=== PATIENT | female | born 1955 | race Hispanic/Latino ===

== ENCOUNTER 2019-03-08 07:53 | Day surgery (SDC) | payer OTHER ==
--- OUTSIDE RECORDS SUMMARY | 2019-03-08 07:55 | XMS REPORT | Clinical Summary ---
:1955 Author Organization [facility] Address [address] [place] [address] Care Team Providers Name Role Phone Viktoriya Ponce DO Primary Care Provider Allergies Active Allergy Reactions Severity Noted Date Comments Codeine Other (See Comments) 10/28/2012 Hydrocodone-Acetaminophen Diarrhea 10/28/2012 Medications Medication Sig Dispensed Refills Start Date End Date Status sulfamethoxazole-trim TAKE ONE (1) 2 06/04/2017 Active ethoprim (BACTRIM DS) TABLET(S) BY MOUTH 800-160 mg per tablet EVERY TWELVE HOURS. ECONAZOLE NITRATE, 0 06/04/2017 Active BULK, MISC urea 40 % nail film Apply to affected 12 06/04/2017 Active suspension area twice daily. Active Problems Problem Noted Date History of kidney cancer 12/18/2015 Encounters Date Type Specialty Care Team Description 11/09/2018 Office Visit Urology Niki Renee MD History of renal cell cancer (Primary Dx) 11/09/2018 Hospital Encounter Radiology Niki Renee MD History of kidney cancer 10/27/2018 Telephone Urology [place] Thayer MA 10/23/2018 Telephone Urology [place] Thayer MA History of kidney cancer (Primary Dx) 10/22/2018 Transcribe Orders Urology Niki Renee MD Personal history of renal cancer (Primary Dx) after 03/07/2018 Social History Tobacco Use Types Packs/Day Years Used Date Never Smoker Smokeless Tobacco: Never Used Alcohol Use Drinks/Week oz/Week Comments Yes ocassional Sex Assigned at Date Recorded Female 11/08/2018 11:07 PM CDT Job Start Date Occupation Industry Not on file Not on file Not on file Travel History Travel Start Travel End No recent travel history available. Last Filed Vital Signs Vital Sign Reading Time Taken Blood Pressure 139/86 11/09/2018 1:26 PM CDT Pulse 75 11/09/2018 1:26 PM CDT Temperature - - Respiratory Rate - - Oxygen Saturation - - Inhaled Oxygen Concentration - - Weight 122 kg (270 lb) 11/09/2018 10:56 AM CDT Height 160 cm (5' 3") 11/09/2018 10:56 AM CDT Body Mass Index 47.83 11/09/2018 10:56 AM CDT Plan of Treatment Health Maintenance Due Date Last Done Comments BREAST CANCER SCREENING 2006 COLONOSCOPY SCREENING 2006 SHINGLES VACCINES (#1) 2006 INFLUENZA VACCINE 03/04/2019 Procedures Procedure Name Priority Date/Time Associated Comments Diagnosis CT CHEST W CONTRAST Routine 11/09/2018 12:02 PM History of kidney Results for this ABDOMEN W WO CDT cancer procedure are in CONTRAST the results section. ESTIMATED GFR Routine 11/09/2018 11:28 AM Results for this CDT procedure are in the results section. POC CREATININE Routine 11/09/2018 11:28 AM Results for this CDT procedure are in the results section. after 03/07/[address] Chest W Contrast Abdomen W Wo Contrast (11/09/2018 12:02 PM CDT) Specimen Narrative Performed At EXAMINATION:CT CHEST W CONTRAST ABDOMEN W WO CONTRAST [facility] CLINICAL HISTORY:Z85.528 Personal history of other malignant neoplasm of kidney, h o Kidney Cancer Z85.528 TECHNIQUE: Multiple axial images of the chest and abdomen were obtained after intravenous administration of contrast. Precontrast images of the abdomen were obtained. Sagittal and coronal computerized reformatted images were also obtained. Radiation dose reduction technique was utilized. COMPARISON:08/01/2017 IMPRESSION: 1. No mediastinal or hilar masses are present. 2.There are no pleural effusions. 3.No pulmonary parenchymal masses or infiltrates are seen. 4.There is a small hiatus hernia. 5.There is fatty infiltration of the liver. No masses are seen. 6.Spleen, pancreas, adrenals, and right kidney are normal. 7.There are postoperative changes related to partial renal resection in the upper pole. No residual or recurrent tumor identified. 8.There is no retroperitoneal adenopathy or upper abdominal ascites. [facility]-[id number] Procedure Note Interface, Radiology Results Incoming - 11/09/2018 12:50 PM CDT EXAMINATION: CT CHEST W CONTRAST ABDOMEN W WO CONTRAST CLINICAL HISTORY: Z85.528 Personal history of other malignant neoplasm of kidney, h o Kidney Cancer Z85.528 TECHNIQUE: Multiple axial images of the chest and abdomen were obtained after intravenous administration of contrast. Precontrast images of the abdomen were obtained. Sagittal and coronal computerized reformatted images were also obtained. Radiation dose reduction technique was utilized. COMPARISON: 08/01/2017 IMPRESSION: 1. No mediastinal or hilar masses are present. 2. There are no pleural effusions. 3. No pulmonary parenchymal masses or infiltrates are seen. 4. There is a small hiatus hernia. 5. There is fatty infiltration of the liver. No masses are seen. 6. Spleen, pancreas, adrenals, and right kidney are normal. 7. There are postoperative changes related to partial renal resection in the upper pole. No residual or recurrent tumor identified. 8. There is no retroperitoneal adenopathy or upper abdominal ascites. [facility]-[id number] Performing Organization Address [facility] Phone Number [facility] [address] [place] [address] Estimated GFR (11/09/2018 11:28 AM CDT) Pathologist [facility] Estimated GFR >=90 mL/min/1.73 [facility] Comment: [address] CatergoryUnitsInterpretation G1 >=90 Normal or high G2 60-89Mildly decreased Z1z97-04Vjwyqs to moderately decreased Q7z77-68Cpemlhgxyz to severely decreased G4 15-29Severely decreased G5 <15Kidney failure The eGFR was calculated using the Chronic Kidney Disease Epidemiology Collaboration (CKD-EPI) equation. Interpretation is based on recommendations of the National Kidney Foundation-Kidney Disease Outcomes Quality Initiative (NKF-KDOQI) published in 2014. Specimen Blood Performing Organization Address [facility]/Zipcode Phone Number [facility] DEPARTMENT OF PATHOLOGY AND [address] [place] [address] GENOM[address] MED[address]INE [address] [address] POC creatinine (11/09/2018 11:28 AM CDT) Pathologist [facility] POC creatinine 0.6 0.5 - 0.9 mg/dl [facility]ANNA [facility]ST[facility]AR[facility] Comment: HOSPITAL Meter ID: [id number] Cremator: Val Arana Specimen Blood Performing Organization Address City/State/Zipcode Phone Number [facility] DEPARTMENT OF PATHOLOGY AND [address] [place] [address] GENOMIC MEDICINE [place] [id number] [place] [address] after 03/07/2018 (Work) Advance Directives Patient has advance care planning documents on file. For more information, please contact:[facility] [place] [phone]
--- OUTSIDE RECORDS SUMMARY | 2019-03-08 07:56 | XMS REPORT ---
:1955 Author Organization eClinicalWorks Care Team Providers Name Role Phone Ponce, Na Provider Role Unavailable Allergies, Adverse Reactions, Alerts Substance Reaction Event Type codeine nightmares Drug Allergy Lortab 5 stomach Drug Allergy Problems Problem Type Condition Code Onset Dates Condition Status Assessment Blood tests for routine general Z00.00 Active physical examination Assessment Hx of renal cell carcinoma Z85.528 Active Assessment EMILY (obstructive sleep apnea) G47.33 Active Assessment Vitamin D deficiency E55.9 Active Assessment Pain, joint, multiple sites M25.50 Active Assessment Varicose veins of bilateral lower I83.893 Active extremities with other complications Assessment Grieving F43.21 Active Assessment Lumbosacral disc herniation M51.27 Active Assessment Restless legs G25.81 Active Problem Vitamin D deficiency E55.9 Active Assessment Hiatal hernia K44.9 Active Problem Pain, joint, multiple sites M25.50 Active Assessment Gastroesophageal reflux disease K21.9 Active without esophagitis Problem Lumbar disc herniation M51.26 Active Problem Lumbosacral disc herniation M51.27 Active Problem Prediabetes R73.03 Active Problem Varicose veins of bilateral lower I83.893 Active extremities with other complications Problem Grieving F43.21 Active Assessment Lumbar back pain with radiculopathy M54.17 Active affecting left lower extremity Problem Restless legs G25.81 Active Assessment Prediabetes R73.03 Active Problem Plantar fasciitis, bilateral M72.2 Active Problem Osteoarthritis of lumbar spine, M47.816 Active unspecified spinal osteoarthritis complication status Problem Gastroesophageal reflux disease K21.9 Active without esophagitis Problem Lumbar back pain with radiculopathy M54.17 Active affecting left lower extremity Problem Arthritis of spine M46.90 Active Problem Enuresis R32 Active Problem Morbid obesity due to excess E66.01 Active calories Problem Allergic rhinitis J30.9 Active Problem Obstructive sleep apnea G47.33 Active Problem Renal mass N28.89 Active Problem Diverticulitis of colon K57.32 Active Problem Sciatica of left side M54.32 Active Medications Medication Code Code Instructions Start End Status Dosage System Date Date ProAir HFA [facility] 70201829238 108 (90 Base) January Active 2 puffs MCG/ACT 12, as needed Inhalation 2018 every 6 hrs Prilosec [facility] 76523646486 40 MG Orally Active 1 capsule Once a day Hydrochlorothiazide [facility] 73647499592 25 MG Orally Active 1 tablet Once a day in the morning Omeprazole Magnesium [facility] 30613373833 20.6 (20 Base) October Active 1 capsule MG Orally Once 14, a day 2018 Ranitidine HCl [facility] 03732734245 150 MG Orally January Active 1 tablet Twice a day 18, at 2019 bedtime Vitamin D [facility] 97777244763 [address] UNIT Active TAKE ONE (Ergocalciferol) (1) CAPSULE BY MOUTH WEEKLY FOR 12 WEEKS. Flonase [facility] 55430277494 50 MCG/DOSE Active 2 spray Nasally Once a in each day nostril Levocetirizine [facility] 33569134703 5 MG Orally Active 1 tablet Dihydrochloride Once a day in the evening Claritin [facility] 23366917082 10 MG Orally Active 1 tablet Once a day Results No Known Results Summary Purpose eClinicalWorks Submission
--- OUTSIDE RECORDS SUMMARY | 2019-03-08 07:56 | XMS REPORT ---
:1955 Author Organization eClinicalWorks Care Team Providers Name Role Phone Ponce, Na Provider Role Unavailable Allergies No Known Allergies Problems Problem Type Condition Code Onset Dates Condition Status Problem Arthritis of spine M46.90 Active Problem Plantar fasciitis, bilateral M72.2 Active Problem Allergic rhinitis J30.9 Active Problem Lumbar disc herniation M51.26 Active Problem Pain, joint, multiple sites M25.50 Active Problem Vitamin D deficiency E55.9 Active Problem Lumbosacral disc herniation M51.27 Active Problem Prediabetes R73.03 Active Problem Lumbar back pain with radiculopathy M54.17 Active affecting left lower extremity Problem Osteoarthritis of lumbar spine, M47.816 Active unspecified spinal osteoarthritis complication status Problem Obstructive sleep apnea G47.33 Active Problem Renal mass N28.89 Active Problem Diverticulitis of colon K57.32 Active Problem Enuresis R32 Active Problem Sciatica of left side M54.32 Active Problem Morbid obesity due to excess E66.01 Active calories Medications Medication Code System Code Instructions Start Date End Date Status Dosage Flagyl NDC 95337404870 500 MG Orally bid Apr 24, May 01, Active 1 tablet 2017 2017 Cipro NDC 68332688052 500 MG Orally Apr 24, May 01, Active 1 tablet every 12 hrs 2017 2017 Results No Known Results Summary Purpose eClinicalWorks Submission
--- OUTSIDE RECORDS SUMMARY | 2019-03-08 07:56 | XMS REPORT ---
:1955 Author Organization eClinicalWorks Care Team Providers Name Role Phone Ponce, Na Provider Role Unavailable Allergies No Known Allergies Problems Problem Type Condition Code Onset Dates Condition Status Problem Allergic rhinitis J30.9 Active Problem Prediabetes R73.03 Active Problem Plantar fasciitis, bilateral M72.2 Active Problem Lumbar back pain with radiculopathy M54.17 Active affecting left lower extremity Problem Lumbar disc herniation M51.26 Active Problem Gastroesophageal reflux disease K21.9 Active without esophagitis Problem Osteoarthritis of lumbar spine, M47.816 Active unspecified spinal osteoarthritis complication status Problem Lumbosacral disc herniation M51.27 Active Problem Pain, joint, multiple sites M25.50 Active Problem Vitamin D deficiency E55.9 Active Problem Morbid obesity due to excess E66.01 Active calories Assessment Gastroesophageal reflux disease K21.9 Active without esophagitis Problem Sciatica of left side M54.32 Active Problem Obstructive sleep apnea G47.33 Active Problem Enuresis R32 Active Problem Renal mass N28.89 Active Problem Diverticulitis of colon K57.32 Active Problem Arthritis of spine M46.90 Active Medications Medication Code Code Instructions Start End Status Dosage System Date Date Omeprazole [facility] 37898359254 20.6 (20 Base) October 15, Active 1 capsule Magnesium MG Orally Once a 2018 day Results No Known Results Summary Purpose [employer] Submission
--- OUTSIDE RECORDS SUMMARY | 2019-03-08 07:56 | XMS REPORT ---
:1955 Author Organization eClinicalWorks Care Team Providers Name Role Phone Ponce, Na Provider Role Unavailable Allergies, Adverse Reactions, Alerts Substance Reaction Event Type codeine nightmares Drug Allergy Lortab 5 stomach Drug Allergy Problems Problem Type Condition Code Onset Dates Condition Status Problem Lumbar disc herniation M51.26 Active Problem Lumbosacral disc herniation M51.27 Active Problem Prediabetes R73.03 Active Problem Varicose veins of bilateral lower I83.893 Active extremities with other complications Problem Grieving F43.21 Active Assessment Right anterior knee pain M25.561 Active Assessment Traumatic ecchymosis of multiple S80.11XA Active sites of right lower extremity, initial encounter Problem Restless legs G25.81 Active Problem Plantar fasciitis, bilateral M72.2 Active Problem Osteoarthritis of lumbar spine, M47.816 Active unspecified spinal osteoarthritis complication status Problem Gastroesophageal reflux disease K21.9 Active without esophagitis Problem Lumbar back pain with M54.17 Active radiculopathy affecting left lower extremity Problem Arthritis of spine M46.90 Active Problem Enuresis R32 Active Problem Morbid obesity due to excess E66.01 Active calories Problem Allergic rhinitis J30.9 Active Problem Obstructive sleep apnea G47.33 Active Problem Renal mass N28.89 Active Assessment History of recent fall Z91.81 Active Problem Diverticulitis of colon K57.32 Active Problem Vitamin D deficiency E55.9 Active Assessment Acute pain of right wrist M25.531 Active Problem Sciatica of left side M54.32 Active Problem Pain, joint, multiple sites M25.50 Active Medications Medication Code Code Instructions Start End Status Dosage System Date Date Vitamin D [facility] 69687212851 [address] UNIT Active TAKE ONE (Ergocalciferol) (1) CAPSULE BY MOUTH WEEKLY FOR 12 WEEKS. Omeprazole Magnesium [facility] 60317067898 20.6 (20 Base) October Active 1 capsule MG Orally Once 14, a day 2018 Prilosec [facility] 48379328057 40 MG Orally Active 1 capsule Once a day Claritin [facility] 08880530090 10 MG Orally Active 1 tablet Once a day ProAir HFA [facility] 96953365887 108 (90 Base) January Active 2 puffs MCG/ACT 12, as needed Inhalation 2018 every 6 hrs Ranitidine HCl [facility] 53756410035 150 MG Orally January Active 1 tablet Twice a day 18, at 2019 bedtime Levocetirizine [facility] 70037840153 5 MG Orally Active 1 tablet Dihydrochloride Once a day in the evening Meloxicam [facility] 43057314073 7.5 MG Orally February Active 1 tablet Once a day 09, 24, with food 2018 2018 Hydrochlorothiazide [facility] 64948764864 25 MG Orally Active 1 tablet Once a day in the morning Flonase [facility] 42903558913 50 MCG/DOSE Active 2 spray Nasally Once a in each day nostril Results No Known Results Summary Purpose eClinicalWorks Submission
--- OUTSIDE RECORDS SUMMARY | 2019-03-08 07:56 | XMS REPORT ---
[...] due to excess E66.01 Active calories Problem Sciatica of left side M54.32 Active Problem Obstructive sleep apnea G47.33 Active Problem Enuresis R32 Active Problem Renal mass N28.89 Active Problem Diverticulitis of colon K57.32 Active Problem Arthritis of spine M46.90 Active Medications No Known Medications Results No Known Results Summary Purpose eClinicalWorks Submission
--- OUTSIDE RECORDS SUMMARY | 2019-03-08 07:56 | XMS REPORT ---
:1955 Author Organization eClinicalWorks Care Team Providers Name Role Phone Ponce, Na Provider Role Unavailable Allergies, Adverse Reactions, Alerts Substance Reaction Event Type codeine nightmares Drug Allergy Lortab 5 stomach Drug Allergy Problems Problem Type Condition Code Onset Dates Condition Status Assessment Impacted cerumen, right ear H61.21 Active Assessment Acute gastritis without hemorrhage, K29.00 Active unspecified gastritis type Problem Renal mass N28.89 Active Assessment Blood tests for routine general Z00.00 Active physical examination Problem Arthritis of spine M46.90 Active Assessment Gastroesophageal reflux disease K21.9 Active without esophagitis Problem Allergic rhinitis J30.9 Active Problem Prediabetes R73.03 Active Problem Plantar fasciitis, bilateral M72.2 Active Problem Lumbar back pain with radiculopathy M54.17 Active affecting left lower extremity Problem Lumbar disc herniation M51.26 Active Assessment Prediabetes R73.03 Active Assessment Vitamin D deficiency E55.9 Active Problem Gastroesophageal reflux disease K21.9 Active without esophagitis Assessment Pain, joint, multiple sites M25.50 Active Problem Osteoarthritis of lumbar spine, M47.816 Active unspecified spinal osteoarthritis complication status Problem Lumbosacral disc herniation M51.27 Active Problem Pain, joint, multiple sites M25.50 Active Problem Vitamin D deficiency E55.9 Active Problem Morbid obesity due to excess E66.01 Active calories Assessment Lumbosacral disc herniation M51.27 Active Assessment Lumbar back pain with radiculopathy M54.17 Active affecting left lower extremity Problem Sciatica of left side M54.32 Active Problem Obstructive sleep apnea G47.33 Active Problem Enuresis R32 Active Problem Diverticulitis of colon K57.32 Active Medications Medication Code Code Instructions Start End Status Dosage System Date Date Levocetirizine [facility] 42714925106 5 MG Orally Active 1 tablet Dihydrochloride Once a day in the evening Vitamin D [facility] 72047680176 [address] UNIT Active TAKE ONE (Ergocalciferol) (1) CAPSULE BY MOUTH WEEKLY FOR 12 WEEKS. Hydrochlorothiazide [facility] 28127073512 25 MG Orally Active 1 tablet Once a day in the morning Prilosec [facility] 78631170571 40 MG Orally Active 1 capsule Once a day Claritin [facility] 33254943823 10 MG Orally Active 1 tablet Once a day Omeprazole Magnesium [facility] 00633774418 20.6 (20 Base) October Active 1 capsule MG Orally Once 14, a day 2018 Flonase [facility] 48435584419 50 MCG/DOSE Active 2 spray Nasally Once a in each day nostril Results No Known Results Summary Purpose eClinicalWorks Submission
--- OUTSIDE RECORDS SUMMARY | 2019-03-08 07:56 | XMS REPORT ---
[...] with other complications Problem Grieving F43.21 Active Problem Restless legs G25.81 Active Problem Plantar [...] Problem Vitamin D deficiency E55.9 Active Problem Sciatica of left side M54.32 Active Problem Pain, joint, multiple sites M25.50 Active Medications No Known Medications Results No Known Results Summary Purpose eClinicalWorks Submission
--- OUTSIDE RECORDS SUMMARY | 2019-03-08 07:56 | XMS REPORT ---
:1955 Author Organization eClinicalWorks Care Team Providers Name Role Phone Reji Watkins Provider Role Unavailable Allergies, Adverse Reactions, Alerts [...] due to excess E66.01 Active calories Assessment Acute bronchitis, unspecified J20.9 Active organism Problem Sciatica of left side M54.32 Active Problem Obstructive sleep apnea G47.33 Active Problem Enuresis R32 Active Problem Renal mass N28.89 Active Problem Diverticulitis of colon K57.32 Active Problem Arthritis of spine M46.90 Active Medications Medication Code Code Instructions Start End Status Dosage System Date Date ProAir HFA [facility] 14716249665 108 (90 Base) January Active 2 puffs MCG/ACT 12, as needed Inhalation 2018 every [address] [facility] 82656476081 40 MG Orally Active 1 capsule Once a day Levocetirizine [facility] 75019371589 5 MG Orally Active 1 tablet Dihydrochloride Once a day in the evening Vitamin D [facility] 09548126585 [address]68[address] UNIT Active TAKE ONE (Ergocalciferol) (1) CAPSULE BY MOUTH WEEKLY FOR [address]. [address] [facility] 65037587324 20.6 (20 Base) October Active 1 capsule MG Orally Once 14, a day [address] [facility] 72654836918 10 MG Orally Active 1 tablet Once a day [place] 56183671830 20 MG Orally January Active 2 tablet Once a day [address] [facility] 17888665560 25 MG Orally Active 1 tablet Once a day in the morning Flonase [facility] 87332720986 50 MCG/DOSE Active 2 spray Nasally Once a in each day nostril Results No Known Results Summary Purpose eClinicalWorks Submission
--- OUTSIDE RECORDS SUMMARY | 2019-03-08 07:57 | XMS REPORT ---
:1955 Author Organization eClinicalWorks Care Team Providers Name Role Phone Ponce, Viktoriya Provider Role Unavailable Allergies, Adverse Reactions, Alerts Substance Reaction Event Type codeine nightmares Drug Allergy Lortab 5 stomach Drug Allergy Problems Problem Type Condition Code Onset Dates Condition Status Problem Lumbar disc herniation M51.26 Active Problem Lumbosacral disc herniation M51.27 Active Problem Prediabetes R73.03 Active Problem Varicose veins of bilateral lower I83.893 Active extremities with other complications Problem Grieving F43.21 Active Assessment Acute maxillary sinusitis, J01.00 Active recurrence not specified Assessment Seasonal allergic rhinitis due to J30.1 Active pollen Problem Restless legs G25.81 Active Problem Plantar [...] Start End Status Dosage System Date Date Flonase [facility] 61941453210 50 MCG/DOSE Active 2 spray in Nasally Once a each day nostril Vitamin D [facility] 99159390095 [address] UNIT Active TAKE ONE (Ergocalciferol) (1) CAPSULE BY MOUTH WEEKLY FOR 12 WEEKS. Augmentin [facility] 16109844457 875-125 MG February Active 1 tablet Orally every 25, 12 hrs 2018 Prilosec [facility] 66044543335 40 MG Orally Active 1 capsule Once a day ProAir HFA [facility] 70128585554 108 (90 Base) January Active 2 puffs as MCG/ACT 12, needed Inhalation 2018 every 6 hrs Flonase [facility] 56849918930 50 MCG/ACT Active 2 spray in Nasally Once a each day nostril Loratadine [facility] 44949292667 10 MG Orally February Active 1 tablet Once a day 2018 Levocetirizine [facility] 25800090283 5 MG Orally Active 1 tablet Dihydrochloride Once a day in the evening Claritin [facility] 46742014724 10 MG Orally Active 1 tablet Once a day Hydrochlorothiazide [facility] 22165130926 25 MG Orally Active 1 tablet Once a day in the morning MethylPREDNISolone [facility] 94953044381 4 MG Orally February Active as daily 15, , 2018 Omeprazole Magnesium [facility] 62983562447 20.6 (20 Base) October Active 1 capsule MG Orally Once 14, a day 2018 Ranitidine HCl [facility] 91361807148 150 MG Orally January Active 1 tablet Twice a day 18, at bedtime 2018 Meloxicam [facility] 03433720804 7.5 MG Orally February Active 1 tablet Once a day 09, 24, with food 2018 2018 Results No Known Results Summary Purpose eClinicalWorks Submission
[2019-03-08] MEDS ORDERED: Ringers Lactate 1,000 ML IV ONE (08:21)
[2019-03-08] MEDS ORDERED: PROPOFOL 200 MG/20 ML VIAL IV ONE ×2 (09:26)
[2019-03-08] MEDS ORDERED: LIDOCAINE 1% MPF 2 ML AMPULE ONE (09:27)
--- NOTE | 2019-03-08 23:34 | OP ---
Surgeon: Akbar Wilson MD Procedure To Be Performed: Esophagogastroduodenoscopy. Indication For Procedure: Dysphagia, reflux, epigastric pain. Plan For Anesthesia: Monitored anesthesia care. Complexity: Average. Technique: After obtaining informed consent from the patient, explaining risks and complications whi ch include, but are not limited to bleeding, infection, perforation, and anesthesia complication, pat ient was placed in a left lateral position and sedation was given. Subsequently, the scope was advan miri through the mouth and carefully guided up until the second portion of the duodenum. After the co mpletion of examination, scope and equipment were withdrawn and procedure terminated in a safe manner . Findings: In the esophagus, no gross lesion seen in the upper and midesophagus. In the distal esoph loli, there was evidence of LA grade B esophagitis. The GE junction appeared to be at around 35 cm. However, another abnormality was noted more distal to the GE junction. What appears to be an extrin sic stenosis seen in the proximal portion of the gas of the stomach around the fundus level. Biopsie s were taken from the as stated above, still an extrinsic stenosis seen in the proximal st omach at the level of fundus. This was around 37-38 cm from the incisors. With the little pressure, the scope was able to pass through, there was no complete obstruction, but there is definitely some narrowing. This likely appears to be lap band that was placed several years ago on the stomach. In the remainder part of the stomach below the stenosis, mild patchy erythema seen. Biopsies taken. Du odenum, the bulb and second portion appeared normal. Complications: None. Tolerance To Anesthesia: Excellent. Postoperative Diagnoses: 1.Esophagitis. 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 3.Gastritis. Plan: 1.Await pathology results. 2.Follow up in the GI Clinic. 3.Protonix 40 mg oral daily. 4.Follow up with bariatric surgeon for further evaluation and removal or reduction of fluid from the lap band. US/MODL Voice ID: [id number] Report ID: [id number]
== END 2019-03-08 10:45 | disposition home or self-care (01) ==
LOC: OR 07:53
PROVIDERS: ATTEND Internal Medicine Gastroenterology
PROC: 0DB78ZX Excision of Stomach, Pylorus, Via Natural or Artificial Opening Endoscopic, Diagnostic (ICD-10-PCS; 2019-03-08)
PROC: 0DB68ZX Excision of Stomach, Via Natural or Artificial Opening Endoscopic, Diagnostic (ICD-10-PCS; 2019-03-08)
PROC: 0DB58ZX Excision of Esophagus, Via Natural or Artificial Opening Endoscopic, Diagnostic (ICD-10-PCS; 2019-03-08)
PROC: 0DB48ZX Excision of Esophagogastric Junction, Via Natural or Artificial Opening Endoscopic, Diagnostic (ICD-10-PCS; principal; 2019-03-08 09:30)
DX: K29.50 Unspecified chronic gastritis without bleeding (principal); K21.0 Gastro-esophageal reflux disease with esophagitis; I51.89 Other ill-defined heart diseases; K31.89 Other diseases of stomach and duodenum; Z98.84 Bariatric surgery status
CPT/HCPCS: 43239; 88312; 88305; J2704; J2001

== ENCOUNTER 2021-05-12 09:50 | Emergency (ER) | payer OTHER ==
--- NOTE | 2021-05-12 10:05 | ER ---
Nurse's Notes [facility] Name: Sophie Sanchez Age: 65 yrs Sex: Female : 1955 Arrival Date: 05/12/2021 Time: 09:55 Bed 16 Private MD: Diagnosis: Abrasion, right lower leg Presentation: 05/12 09:55 Chief complaint: EMS states: pt nicked herself while shaving and a varicose vein tw2 wouldn't stop bleeding. we applied pressure dressing. vs stable. Hx: varicose veins, PVD, arthritis, Gerd. Coronavirus screen: At this time, the client does not indicate any symptoms associated with coronavirus-19. Ebola Screen: Patient denies travel to an Ebola-affected area in the 21 days before illness onset. Initial Sepsis Screen: Does the patient meet any 2 criteria? No. Patient's initial sepsis screen is negative. Does the patient have a suspected source of infection? No. Patient's initial sepsis screen is negative. Risk Assessment: Do you want to hurt yourself or someone else? Patient reports no desire to harm self or others. Onset of symptoms was May 12, 2021. 09:55 Method Of Arrival: EMS: [facility] tw2 09:55 Acuity: KEENAN 4 tw2 Triage Assessment: 10:06 General: Appears well developed, well nourished, Behavior is calm, cooperative, es2 appropriate for age. Historical: - Allergies: 09:58 Lortab; tw2 09:58 Codeine; tw2 - Home Meds: 09:58 omeprazole 40 mg Oral cpDR 1 cap once daily [Active]; tw2 - PMHx: 09:58 Hypertension; kidney cancer; varicose veins; GERD; tw2 - Immunization history:: Adult Immunizations. - Social history:: Smoking status: . Screenin:59 Abuse screen: Denies threats or abuse. Nutritional screening: No deficits noted. tw2 Tuberculosis screening: No symptoms or risk factors identified. Fall Risk None identified. Assessment: 10:00 Reassessment: provider FAM Funes at bedside at this time. no bleeding noted. tw2 10:06 Pain: Denies pain. es2 Vital Signs: 09:55 Pulse 81; Resp 17; Temp 96.8(TE); Pulse Ox 100% on R/A; Weight 124.74 kg (R); Height 5 tw2 ft. 2 in. (157.48 cm); Pain 0/10; 09:59 BP 154 / 72; tw2 09:55 Body Mass Index 50.30 (124.74 kg, 157.48 cm) tw2 ED Course: 09:55 Patient arrived in ED. tw2 09:55 Bed in low position. Call light in reach. Pulse ox on. NIBP on. tw2 09:56 Jordan Smith NP is PHCP. pm1 09:56 Lewis Fink MD is Attending Physician. pm1 09:57 Triage completed. tw2 09:57 Arm band placed on. tw2 09:59 Sintia Mims, RN is Primary Nurse. es2 10:05 Patient did not have IV access during this emergency room visit. es2 10:06 No provider procedures requiring assistance completed. es2 Administered Medications: No medications were administered Outcome: 10:05 Discharge ordered by . pm1 10:05 Condition: stable es2 10:24 Discharged to home ambulatory. es2 10:24 Discharge instructions given to patient. 10:25 Patient left the ED. es2 Signatures: Jordan Smith NP HOME ECONOMICS EXPERT pm1 Valeria Cavazos RN RN tw2 Sintia Mims, BJORN RN es2
--- NOTE | 2021-05-12 10:05 | EDPHYS ---
Physician Documentation [facility] Name: Sophie Sanchez Age: 65 yrs Sex: Female : 1955 Arrival Date: 05/12/2021 Time: 09:55 Bed 16 Private MD: ED Physician Lewis Fink HPI: 05/12 10:04 This 65 yrs old Female presents to ER via EMS with complaints of Varicose vein pm1 bleeding. 10:04 The patient presents with a laceration, 0.5 cm(s), clean. The complaints affect the pm1 anterior aspect of right ankle. Context: The problem was sustained at home, resulted from Shaving legs, the patient can fully bear weight, the patient is able to ambulate. Onset: The symptoms/episode began/occurred just prior to arrival. Modifying factors: The symptoms are alleviated by pressure. the symptoms are aggravated by nothing. Associated signs and symptoms: The patient has no apparent associated signs or symptoms. Treatment prior to arrival includes: applying pressure to the affected area. Severity of symptoms: in the emergency department the symptoms have improved. The patient has not experienced similar symptoms in the past. The patient has not recently seen a physician. Patient was shaving her legs and accidentally cut a varicose vein resulting in bleeding that she had difficult stopping therefore the patient called EMS. Historical: - Allergies: 09:58 Lortab; tw2 09:58 Codeine; tw2 - Home Meds: 09:58 omeprazole 40 mg Oral cpDR 1 cap once daily [Active]; tw2 - PMHx: 09:58 Hypertension; kidney cancer; varicose veins; GERD; tw2 - Immunization history:: Adult Immunizations. - Social history:: Smoking status: . ROS: 10:04 Constitutional: Negative for fever, chills, and weight loss, Cardiovascular: Negative pm1 for chest pain, palpitations, and edema, Respiratory: Negative for shortness of breath, cough, wheezing, and pleuritic chest pain, MS/Extremity: Negative for injury and deformity. 10:04 Neuro: Negative for headache, weakness, numbness, tingling, and seizure. 10:04 Skin: Positive for laceration(s), of the anterior aspect of right ankle. 10:04 All other systems are negative. Exam: 10:04 Constitutional: This is a well developed, well nourished patient who is awake, alert, pm1 and in no acute distress. Head/Face: Normocephalic, atraumatic. 10:04 Cardiovascular: Exam negative for acute changes, Rate: normal, Rhythm: regular, Pulses: no pulse deficits are appreciated. 10:04 Respiratory: Exam negative for acute changes, respiratory distress, shortness of breath. 10:04 Musculoskeletal/extremity: Extremities: grossly normal except: noted in the anterior aspect of right ankle: laceration, 0.5 cm, There is no evidence of decreased ROM, puncture, swelling, tenderness, ROM: intact in all extremities, Pulses: noted to be 2+ in the right dorsalis pedis artery, the right foot Sensation intact. 10:04 Skin: Appearance: normal except for affected area, injury, laceration(s), the wound is approximately 0.5 cm(s), of the anterior aspect of right ankle. 10:04 Neuro: Exam negative for acute changes, Orientation: is normal, Mentation: is normal, Motor: is normal, moves all fours. Vital Signs: 09:55 Pulse 81; Resp 17; Temp 96.8(TE); Pulse Ox 100% on R/A; Weight 124.74 kg (R); Height 5 tw2 ft. 2 in. (157.48 cm); Pain 0/10; 09:59 BP 154 / 72; tw2 09:55 Body Mass Index 50.30 (124.74 kg, 157.48 cm) tw2 MDM: 10:03 Patient medically screened. pm1 10:04 Data reviewed: vital signs. Data interpreted: Pulse oximetry: on room air is 100 %. pm1 Interpretation: normal. Counseling: I had a detailed discussion with the patient and/or guardian regarding: the historical points, exam findings, and any diagnostic results supporting the discharge/admit diagnosis, the need for outpatient follow up, to return to the emergency department if symptoms worsen or persist or if there are any questions or concerns that arise at home. 05/12 10:04 Order name: Dermabond pm1 Administered Medications: No medications were administered Disposition: 05/13 07:02 Co-signature as Attending Physician, Lewis Fink MD I agree with the assessment and rn plan of care. Attestation: The patient's history, exam findings, diagnostics, and a summary of any interventions or procedures was reviewed in detail with Jordan Smith NP. Disposition Summary: 05/12/21 10:05 Discharge Ordered Location: Home pm1 Problem: new pm1 Symptoms: have improved pm1 Condition: Stable pm1 Diagnosis - Abrasion, right lower leg pm1 Followup: pm1 - With: Emergency Department - When: As needed - Reason: Worsening of condition Followup: pm1 - With: Private Physician - When: As needed - Reason: Recheck today's complaints, Continuance of care, Re-evaluation by your physician Discharge Instructions: - Discharge Summary Sheet pm1 - Abrasion pm1 - Tissue Adhesive Wound Care pm1 Forms: - Medication Reconciliation Form pm1 - Thank You Letter pm1 - Antibiotic Education pm1 - Prescription Opioid Use pm1 Signatures: Lewis Fink MD MD rn Marinas, Patrick, NP COMPUTER ART INSTRUCTOR pm1 Valeria Cavazos RN RN tw2
[2021-05-12] MEDS ORDERED: DERMABOND SKIN ADHESIVE TOP ONE (10:26)
[2021-05-12 10:38] VITALS: TEMP 96.8; O2SAT 100
[2021-05-12 10:39] VITALS: BP 154/72
== END 2021-05-12 10:25 | disposition home or self-care (01) ==
LOC: ER 09:50
DX: S80.811A Abrasion, right lower leg, initial encounter (principal); W45.8XXA Other foreign body or object entering through skin, initial encounter; Y93.E1 Activity, personal bathing and showering; Y92.012 Bathroom of single-family (private) house as the place of occurrence of the external cause; Z88.6 Allergy status to analgesic agent; K21.9 Gastro-esophageal reflux disease without esophagitis
CPT/HCPCS: 99283

== ENCOUNTER 2024-03-16 01:19 | Inpatient (IN) | payer BC ==
[2024-03-16 03:43] LABS: Specific Gravity 1.019 (1.005-1.030); Sqamous Epithelial <5 /HPF (None Seen); Urine Bacteria <20 /HPF (<20); Urine Bilirubin NEGATIVE (Negative); Urine Blood 2+ (Negative); Urine Clarity Extremely Turbid (Clear); Urine Color Light-Yellow (Yellow); Urine Crystals Unidentified Few /HPF (None Seen); Urine Culture Reflex Order REFLEXED; Urine Glucose NEGATIVE (Negative); Urine Ketones NEGATIVE (Negative); Urine Microscopic Reflex YN ORDER UMIC; Urine Mucus Slight /HPF (None Seen); Urine Nitrite 1+ (Negative); Urine Protein TRACE (Negative); Urine RBC 21-50 /HPF (None Seen); Urine Urobilinogen Normal (Normal); Urine WBC >50 /HPF (<5); Urine WBC Clump Rare /HPF (None Seen); Urine pH 6.5 (5.0-7.0)
[2024-03-16] MEDS ORDERED: KETOROLAC 30 MG/ML INJ ONE (06:17)
[2024-03-16] MEDS ORDERED: ONDANSETRON 4 MG/2 ML VIAL ONE ×2 (06:25→16:43)
[2024-03-16] MEDS ORDERED: FAMOTIDINE 20 MG/2 ML VIAL IV ONE (06:26)
[2024-03-16] MEDS ORDERED: NA CHLORIDE 0.9% 1,000 ML ONE ×2 (06:27→08:01)
[2024-03-16 06:34] LABS: Absolute Lymphocytes (CBC) 0.3 K/uL (0.7-4.9); Absolute Monocytes 0.4 K/uL (0.1-1.3); Absolute Neutrophil 9.2 K/uL (1.8-8.0); Basophils % 0.3 % (0-1.3); Eosinophils % 0.3 % (0-4.4); Hematocrit 36.3 % (36.0-45.0); Hemoglobin 12.2 g/dL (12.0-15.0); MCH 31.8 pg (27.0-35.0); MCHC 33.7 g/dL (32.0-36.0); MCV 94.2 fL (80-100); MPV 7.5 fL (7.6-11.3); Monocytes % 3.8 % (3.3-12.3); Neutrophils % 92.6 % (41.7-73.7); Nucleated Red Blood Cells % 0.1 % (0-0); Platelets 174 thou/uL (152-406); RBC Red Blood Cell Count 3.85 M/uL (3.86-4.86); Red Cell Distribution Width 13.2 % (12.1-15.2)
[2024-03-16 06:49] LABS: Albumin 3.6 g/dL (3.4-5.0); Albumin/Globulin Ratio 1.2 (1.1-1.8); Anion Gap 10.3 mEq/L (5.0-15.0); Bilirubin Total 0.4 mg/dL (0.2-1.0); Globulin 2.9 g/dL (2.3-3.5); Potassium 3.3 mEq/L (3.5-5.1); Protein, Total 6.5 g/dL (6.4-8.2)
--- NOTE | 2024-03-16 07:06 | RAD REPORT ---
EXAM DESCRIPTION: CTAbdomen Pelvis Wo Contrast - 03/16/2024 5:48 am CLINICAL HISTORY: ABD PAIN COMPARISON: CT ABDOMEN PELVIS WO CONTRAST dated 07/04/2015; CT ABD PELVIS W CONTRAST dated 04/17/2015 TECHNIQUE: CT of the abdomen and pelvis was performed without contrast. All CT scans are performed using dose optimization technique as appropriate and may include automated exposure control or mA/KV adjustment according to patient size. FINDINGS: Lower chest: Small hiatal hernia. Question surgical changes at the gastroesophageal juncti on. Liver: No acute abnormality or suspicious lesions. Biliary: Cholecystectomy. Extrahepatic biliary ductal dilatation common bile duct measures 11 millime ters. This may be secondary to the postcholecystectomy state. Stomach: No significant focal abnormality. Duodenum: No significant focal abnormality. Pancreas: No significant abnormality. Spleen: No significant abnormality. Adrenal: No suspicious lesions. Kidney/ureter: Moderate left-sided hydronephrosis secondary to a 7 mm stone in the left proximal uret er. Left upper pole renal scarring. Retroperitoneum: No retroperitoneal adenopathy. Vascular: No aneurysm. Bowel: Diverticulosis. No evidence of acute diverticulitis. Normal appendix.. Peritoneum: No ascites or free air. Bladder: Grossly unremarkable. Reproductive: No adnexal masses. Bones: Grade 2 anterolisthesis of L5 on S1 with osseous fusion across the disc. Multilevel degenerati ve changes are present in the spine. Other: n/a IMPRESSION: Mild left-sided hydronephrosis secondary to a 7 mm stone in the left proximal ureter. Cholecystectomy. Extrahepatic biliary duct dilatation likely related to the postcholecystectomy state . Correlate with LFTs.
--- NOTE | 2024-03-16 07:47 | ER ---
Nurse's Notes [facility] Name: Sophie Sanchez Age: 68 yrs Sex: Female : 1955 Arrival Date: 03/16/2024 Time: 01:19 Bed 20 Private MD: Diagnosis: Acute left proximal ureteral calculus, acute UTI, acute left hydronephrosis Presentation: 03/16 01:39 Chief complaint: Patient states: left flank [pain radiating to front x 1 hour denies kl urinary symptoms or heavy lifting. Coronavirus screen: Vaccine status: Patient reports receiving the 2nd dose of the covid vaccine. Ebola Screen: Patient negative for fever greater than or equal to 101.5 degrees Fahrenheit, and additional compatible Ebola Virus Disease symptoms. Initial Sepsis Screen: Does the patient meet any 2 criteria? No. Patient's initial sepsis screen is negative. Does the patient have a suspected source of infection? No. Patient's initial sepsis screen is negative. Risk Assessment: Do you want to hurt yourself or someone else? Patient reports no desire to harm self or others. 01:39 Method Of Arrival: Ambulatory kl 01:39 Acuity: KEENAN 3 kl Triage Assessment: 01:42 General: Appears uncomfortable, Behavior is cooperative. Pain: Complains of pain in kl left low back Pain radiates to left lower quadrant Pain currently is 10 out of 10 on a pain scale. Historical: - Allergies: 01:41 Codeine; kl 01:41 Lortab; kl - PMHx: 01:41 GERD; Hypertension; kidney cancer; varicose veins; kl - Immunization history:: Adult Immunizations not up to date. - Infectious Disease History:: Denies. - Social history:: Smoking status: Patient denies any tobacco usage or history of. - Family history:: not pertinent. Screenin:12 [facility] ED Fall Risk Assessment (Adult) History of falling in the last 3 months, kc6 including since admission No falls in past 3 months (0 pts) Confusion or Disorientation No (0 pts) Intoxicated or Sedated No (0 pts) Impaired Gait No (0 pts) Mobility Assist Device Used No (0 pt) Altered Elimination No (0 pt) Score/Fall Risk Level 0 - 2 = Low Risk. Abuse screen: Denies threats or abuse. Denies injuries from another. Nutritional screening: No deficits noted. Tuberculosis screening: No symptoms or risk factors identified. Assessment: 06:29 Reassessment: Patient appears in no apparent distress at this time. Patient and/or jb4 family updated on plan of care and expected duration. Pain level reassessed. Patient is alert, oriented x 3, equal unlabored respirations, skin warm/dry/pink. 08:12 General: Appears in no apparent distress. comfortable, well groomed, well developed, kc6 Behavior is calm, cooperative, appropriate for age. Pain: Complains of pain in left lower quadrant and left low back. Neuro: Level of Consciousness is awake, alert, obeys commands, Oriented to person, place, time, situation, Appropriate for age. Cardiovascular: Capillary refill < 3 seconds. Respiratory: Airway is patent Trachea midline Respiratory effort is even, unlabored, Respiratory pattern is regular, symmetrical. GI: No signs and/or symptoms were reported involving the gastrointestinal system. : No signs and/or symptoms were reported regarding the genitourinary system. EENT: No signs and/or symptoms were reported regarding the EENT system. Derm: No signs and/or symptoms reported regarding the dermatologic system. Skin is intact, is healthy with good turgor, Skin is pink, warm \\T\\ dry. Musculoskeletal: No signs and/or symptoms reported regarding the musculoskeletal system. Circulation, motion, and sensation intact. Capillary refill < 3 seconds, Range of motion: intact in all extremities. 09:52 Reassessment: Patient appears in no apparent distress at this time. No changes from kc6 previously documented assessment. Patient and/or family updated on plan of care and expected duration. Pain level reassessed. Patient is alert, oriented x 3, equal unlabored respirations, skin warm/dry/pink. Vital Signs: 01:39 BP 194 / 74; Pulse 74; Resp 18; Temp 97.6(O); Pulse Ox 97% ; Weight 119.75 kg (R); kl Height 5 ft. 2 in. ; Pain 10/10; 06:29 BP 136 / 63; Pulse 92; Resp 16; Pulse Ox 99% on R/A; jb4 08:13 BP 112 / 63; Pulse 91; Resp 18 S; Pulse Ox 100% on R/A; kc6 01:39 Body Mass Index 48.29 (119.75 kg, 157.48 cm) kl 01:39 Pain Scale: Adult kl [place] Coma Score: 07:28 Eye Response: spontaneous(4). Motor Response: obeys commands(6). Verbal Response: sp4 oriented(5). Total: 15. ED Course: 01:34 Patient arrived in ED. gm2 01:41 Triage completed. kl 02:43 Slava Luna MD is Attending Physician. sp4 05:50 Abdomen In Process Unspecified. EDMS 06:21 Initial lab(s) drawn, by me, sent to lab. kmf 06:21 CBC with Diff Sent. kmf 06:21 CMP Sent. kmf 06:21 Lipase Sent. kmf 06:22 Inserted saline lock: 22 gauge in right hand, using aseptic technique. Blood collected. kmf Flushed with 10 mL NS. 07:45 Mark Cortez MD is Hospitalizing Provider. sp4 08:10 Lissette Mejía RN is Primary Nurse. kc6 08:11 Patient has correct armband on for positive identification. Placed in gown. Bed in low kc6 position. Call light in reach. Side rails up X2. Adult w/ patient. Report received from Xochitl Peña RN. Pulse ox on. NIBP on. Door closed. Noise minimized. Lights dimmed. Warm blanket given. Pillow given. Head of bed elevated. 08:12 Arm band placed on. kc6 10:31 No provider procedures requiring assistance completed. Patient admitted, IV remains in kc6 place. 11:12 1000 CM met with and her son ISMAEL at bedside in the ED exam room. Patient ane identified by name and . Demographic sheet confirmed. lives with her son ISMAEL in a one story home. Patient states she stays alone with her dog while her son works. Prior to admission, patient ambulates fairly well independently, however, will use the wall and furniture to guide her when she has pain. Patient goes on to explain she has arthritis in her knees as well as "sciatic" pain. She prefers to not use a walker if she can avoid it. DME includes a built in shower bench. states she used to have a CPAP machine that she disposed of. Patient does not have an MPOA in place at this time. No HH, home oxygen or other medical services at this time. Mrs. Sanchez states " I have a lot of health problems and keep putting it off." She explains she has a gastric band that needs adjusting and a hiatal hernia that needs treatment. CM discussed options for increasing strength and functionality. Patient is undecided if about best course; her discharge preference is to return to her son's home where she lives. ISMAEL states he will transport her home when discharged .CM team will continue to follow and coordinate care. Administered Medications: 06:14 Not Given (Other Intervention Used): TORadol - [id number] mg IVP once jb4 06:14 Not Given (Patient Refused): morphineor iv 8 mg IVP once over 4 mins jb4 06:19 Not Given (Patient Refused): morphine4 mg IM once jb4 06:19 Not Given (Other Intervention Used): [id number] mg IM once jb4 06:22 Drug: Ketorolac IVP 30 mg IVP once Route: IVP; Site: right hand; jb4 08:13 Follow up: Response: No adverse reaction; Pain is decreased kc6 06:39 Drug: NS 0.9% IV 1000 ml IV at 1 bolus Per protocol; 1000 mL bolus Route: IV; Rate: 1 jb4 bolus; Site: right hand; 06:39 Follow up: Response: No adverse reaction jb4 08:14 Follow up: Response: No adverse reaction; IV Status: Completed infusion; IV Intake: kc6 1000ml 06:39 Drug: Famotidine IVP 20 mg IVP once; dilute with 10 mL 0.9% NaCl; give over 2 minutes jb4 Route: IVP; Site: right hand; 08:14 Follow up: Response: No adverse reaction kc6 06:41 Not Given (Patient Refused): ondansetron 4 mg IVP once; over 2 minutes jb4 08:10 Drug: Rocephin - Rocephin (cefTRIAXone) IVPB 1 grams IVPB once over 30 mins; (mix in 50 kc6 mL NS) Route: IVPB; Infused Over: 30 mins; Site: right hand; 09:52 Follow up: Response: No adverse reaction; IV Status: Completed infusion; IV Intake: [id number] 08:10 Drug: NS 0.9% IV 1000 ml IV at 125 ml/hr continuous Route: IV; Rate: 125 ml/hr; Site: [facility] right hand; 09:52 Follow up: Response: No adverse reaction; IV Status: Infusion continued upon admission; kc6 IV Intake: 1000ml Medication: 10:31 VIS not applicable for this client. kc6 Intake: 08:14 IV: 1000ml; Total: 1000ml. kc6 09:52 IV: 50ml; Total: 1050ml. kc6 09:52 IV: 1000ml; Total: 2050ml. kc6 Outcome: 07:46 Decision to Hospitalize by Provider. roz 10:31 Admitted to Med/surg accompanied by tech, via wheelchair, room 217, with chart, kc6 10:31 Condition: good 10:31 Instructed on the need for admit, 10:31 Patient left the ED. [facility] Signatures: Dispatcher [employer] EDSarah Beard, RN Rufus Glynn RN RN dar4 Lissette Mejía RN RN kc6 Slava Luna MD MD sp4 Noemi Baum [facility] Elaine Acuna [facility] Stefania Peters RN RN ane
--- NOTE | 2024-03-16 07:47 | EDPHYS ---
Physician Documentation [facility] Name: Sophie Sanchez Age: 68 yrs Sex: Female : 1955 Arrival Date: 03/16/2024 Time: 01:19 Bed 20 Private MD: ED Physician Slava Luna HPI: 03/16 02:43 This 68 yrs old Female presents to ER via Ambulatory with complaints of Back sp4 Pain, Abdominal Pain. 07:28 68-year-old female presents with acute onset left flank pain sudden onset at 1 AM.. sp4 Historical: - Allergies: 01:41 Codeine; kl 01:41 Lortab; kl - PMHx: 01:41 GERD; Hypertension; kidney cancer; varicose veins; kl - Immunization history:: Adult Immunizations not up to date. - Infectious Disease History:: Denies. - Social history:: Smoking status: Patient denies any tobacco usage or history of. - Family history:: not pertinent. ROS: 07:28 Constitutional: Negative for fever, chills, and weight loss, positive for left flank sp4 pain 07:28 All other systems are negative, Exam: 07:28 Constitutional: This is a well developed, well nourished patient who is awake, alert, sp4 and in no acute distress. Head/Face: Normocephalic, atraumatic. Eyes: Pupils equal round and reactive to light, extra-ocular motions intact. Lids and lashes normal. Conjunctiva and sclera are not injected. Cornea within normal limits. Periorbital areas with no swelling, redness, or edema. ENT: Nares patent. No nasal discharge, no septal abnormalities noted. Tympanic membranes are normal and external auditory canals are clear. Oropharynx with no redness, swelling, or masses, exudates, or evidence of obstruction, uvula midline. Mucous membranes moist. Neck: Trachea midline, no thyromegaly or masses palpated, and no cervical lymphadenopathy. Supple, full range of motion without nuchal rigidity, or vertebral point tenderness. Chest/axilla: Normal chest wall appearance and motion. Nontender with no deformity. No lesions are appreciated. Cardiovascular: Regular rate and rhythm with a normal S1 and S2. No gallops, murmurs, or rubs. Normal PMI, no JVD. No pulse deficits. Respiratory: Lungs have equal breath sounds bilaterally, clear to auscultation and percussion. No rales, rhonchi or wheezes noted. No increased work of breathing, no retractions or nasal flaring. Abdomen/GI: Soft, with normal bowel sounds. No distension or tympany. No guarding or rebound. No evidence of tenderness throughout. Back: No spinal tenderness. No costovertebral tenderness. Skin: Warm, dry with normal turgor. Normal color with no rashes, no lesions, and no evidence of cellulitis. MS/ Extremity: Pulses equal, no cyanosis. Neurovascular intact. Full, normal range of motion. Neuro: Awake and alert, GCS 15, oriented to person, place, time, and situation. Cranial nerves II-XII grossly intact. Motor strength 5/5 in all extremities. Sensory grossly intact. Psych: Awake, alert, with orientation to person, place and time. Behavior, mood, and affect are within normal limits Vital Signs: 01:39 BP 194 / 74; Pulse 74; Resp 18; Temp 97.6(O); Pulse Ox 97% ; Weight 119.75 kg (R); kl Height 5 ft. 2 in. ; Pain 10/10; 06:29 BP 136 / 63; Pulse 92; Resp 16; Pulse Ox 99% on R/A; jb4 08:13 BP 112 / 63; Pulse 91; Resp 18 S; Pulse Ox 100% on R/A; kc6 01:39 Body Mass Index 48.29 (119.75 kg, 157.48 cm) kl 01:39 Pain Scale: Adult Sandstone Coma Score: 07:28 Eye Response: spontaneous(4). Motor Response: obeys commands(6). Verbal Response: sp4 oriented(5). Total: 15. MDM: 02:48 Patient medically screened. sp4 07:28 ED course: EXAM DESCRIPTION: CTAbdomen Pelvis Wo Contrast - 03/16/2024 5:48 am CLINICAL sp4 HISTORY: ABD PAIN COMPARISON: CTABDOMEN PELVIS WO CONTRAST dated 07/04/2015; CTABD PELVIS W CONTRAST dated 04/17/2015 TECHNIQUE: CT of the abdomen and pelvis was performed without contrast. All CT scans are performed using dose optimization technique as appropriate and may include automated exposure control or mA/KV adjustment according to patient size. FINDINGS: Lower chest: Small hiatal hernia. Question surgical changes at the gastroesophageal junction. Liver: No acute abnormality or suspicious lesions. Biliary: Cholecystectomy. Extrahepatic biliary ductal dilatation common bile duct measures 11 millimeters. This may be secondary to the postcholecystectomy state. Stomach: No significant focal abnormality. Duodenum: No significant focal abnormality. Pancreas: No significant abnormality. Spleen: No significant abnormality. Adrenal: No suspicious lesions. Kidney/ureter: Moderate left-sided hydronephrosis secondary to a 7 mm stone in the left proximal ureter. Left upper pole renal scarring. Retroperitoneum: No retroperitoneal adenopathy. Vascular: No aneurysm. Bowel: Diverticulosis. No evidence of acute diverticulitis. Normal appendix.. Peritoneum: No ascites or free air. Bladder: Grossly unremarkable. Reproductive: No adnexal masses. Bones: Grade 2 anterolisthesis of L5 on S1 with osseous fusion across the disc. Multilevel degenerative changes are present in the spine. Other: n/a IMPRESSION: Mild left-sided hydronephrosis secondary to a 7 mm stone in the left proximal ureter. Cholecystectomy. Extrahepatic biliary duct dilatation likely related to the postcholecystectomy state. Correlate with LFTs. . 07:30 Differential diagnosis: Hydronephrosis Osteoporosis Pyelonephritis Renal Infarction sp4 ruptured disc. Data reviewed: vital signs, nurses notes, lab test result(s), radiologic studies, CT scan. Consideration of Admission/Observation Escalation of care including admission/observation considered. 07:46 ED course: Patient was discussed with internal medicine and accepted for admission for sp4 proximal ureteral renal stone associated with UTI.. 07:48 ED course: Dr. Hubbard with urology was notified via text message about the patient and sp4 her condition.. 03/16 02:32 Order name: Urinalysis w/ reflexes; Complete Time: 07:21 kl 03/16 02:48 Order name: CBC with Diff; Complete Time: 09:33 sp4 03/16 02:48 Order name: CMP; Complete Time: 07:21 sp4 03/16 02:48 Order name: Lipase; Complete Time: 07:21 sp4 03/16 03:53 Order name: Urine Culture EDUT 03/16 08:46 Order name: CBC Smear Scan; Complete Time: 09:33 EDMS 03/16 09:14 Order name: Hemoglobin A1c EDUT 03/16 09:14 Order name: Lactic Dehydrogenase EDUT 03/16 09:14 Order name: Uric Acid EDMS 03/16 09:14 Order name: Urinalysis w/ reflexes EDMS 03/16 09:14 Order name: CBC with Automated Diff EDMS 03/16 09:14 Order name: CBC with Automated Diff EDMS 03/16 09:14 Order name: CBC with Automated Diff EDMS 03/16 09:14 Order name: CBC with Automated Diff EDMS 03/16 09:14 Order name: Comprehensive Metabolic Panel EDMS 03/16 09:14 Order name: Comprehensive Metabolic Panel EDMS 03/16 09:14 Order name: Comprehensive Metabolic Panel EDMS 03/16 09:14 Order name: Comprehensive Metabolic Panel EDMS 03/16 09:14 Order name: Lipid Profile EDMS 03/16 09:14 Order name: Lipid Profile EDMS 03/16 09:14 Order name: Magnesium EDMS 03/16 09:14 Order name: Magnesium EDMS 03/16 09:14 Order name: Magnesium EDMS 03/16 09:14 Order name: Magnesium EDMS 03/16 09:30 Order name: Thyroid Stimulating Hormone EDMS 03/16 05:50 Order name: Abdomen ; Complete Time: 07:21 EDMS 03/16 09:14 Order name: CONS Physician Consult EDMS 03/16 02:48 Order name: IV Saline Lock; Complete Time: 06:22 sp4 03/16 02:48 Order name: Labs collected and sent; Complete Time: 06:22 sp4 03/16 06:06 Order name: Misc. Order: recollect purple and green; Complete Time: 07:26 kmf 03/16 07:30 Order name: NPO; Complete Time: 07:48 sp4 Administered Medications: 06:14 Not Given (Other Intervention Used): TORadol - mg IVP once jb4 06:14 Not Given (Patient Refused): morphineor iv 8 mg IVP once over 4 mins jb4 06:19 Not Given (Patient Refused): morphine4 mg IM once jb4 06:19 Not Given (Other Intervention Used): [id number] mg IM once jb4 06:22 Drug: Ketorolac IVP 30 mg IVP once Route: IVP; Site: right hand; jb4 08:13 Follow up: Response: No adverse reaction; Pain is decreased kc6 06:39 Drug: NS 0.9% IV 1000 ml IV at 1 bolus Per protocol; 1000 mL bolus Route: IV; Rate: 1 jb4 bolus; Site: right hand; 06:39 Follow up: Response: No adverse reaction jb4 08:14 Follow up: Response: No adverse reaction; IV Status: Completed infusion; IV Intake: kc6 1000ml 06:39 Drug: Famotidine IVP 20 mg IVP once; dilute with 10 mL 0.9% NaCl; give over 2 minutes jb4 Route: IVP; Site: right hand; 08:14 Follow up: Response: No adverse reaction kc6 06:41 Not Given (Patient Refused): ondansetron 4 mg IVP once; over 2 minutes jb4 08:10 Drug: Rocephin - Rocephin (cefTRIAXone) IVPB 1 grams IVPB once over 30 mins; (mix in 50 kc6 mL NS) Route: IVPB; Infused Over: 30 mins; Site: right hand; 09:52 Follow up: Response: No adverse reaction; IV Status: Completed infusion; IV Intake: [id number] 08:10 Drug: NS 0.9% IV 1000 ml IV at 125 ml/hr continuous Route: IV; Rate: 125 ml/hr; Site: [facility] right hand; 09:52 Follow up: Response: No adverse reaction; IV Status: Infusion continued upon admission; kc6 IV Intake: 1000ml Disposition Summary: 03/16/24 07:46 Hospitalization Ordered Notes: Hospitalization Status: Observation sp4 Provider: Mark Cortez sp4 Condition: Fair sp4 Problem: new sp4 Symptoms: have improved sp4 Bed/Room Type: Standard sp4 Location: Telemetry/MedSurg (observation)(03/16/24 09:24) Room Assignment: 217(03/16/24 09:24) bd Diagnosis - Acute left proximal ureteral calculus, acute UTI, acute left hydronephrosis sp4 Forms: - Medication Reconciliation Form sp4 - SBAR form sp4 - Leadership Thank You Letter sp4 Signatures: Dispatcher [employer] Yoselin Shahid Kimberly, RN RN kl Waters, Shelly, FAM-C [employer] DUCT MECHANIC-Rufus Garduno RN RN jb4 Lissette Mejía RN RN kc6 Slava Luna MD MD sp4 Elaine Acuna kmf Corrections: (The following items were deleted from the chart) 05:50 02:48 Abdomen Pelvis W Con+CT.RAD.BRZ ordered. EDMS EDMS 07:46 Telemetry/MedSurg (observation) sp4 bd : 07:46 sp4 bd : 09:19 BR ER HOLD bd bd 09:19 ERHOLD- bd bd 09: 09:14 Thyroid Stimulating Hormone ordered. EDMS EDMS
[2024-03-16] MEDS ORDERED: CEFTRIAXONE 1000 MG/VIAL ONE (08:01)
[2024-03-16 08:46] LABS: Blood Morphology Comment NOT SEEN (NOT SEEN); Platelet Estimate ADEQ; White Blood Cell Scan OK (OK)
[2024-03-16] MEDS ORDERED: FENTANYL CITR 100 MCG/2 ML IV PRN (09:05)
[2024-03-16] MEDS ORDERED: ACETAMINOPHEN 500 MG TAB PO PRN (09:05)
[2024-03-16] MEDS ORDERED: SODIUM CHLORIDE 0.9% 10ML INJ IV PRN (09:19)
--- NOTE | 2024-03-16 09:20 | P.HP ---
Certification for Inpatient Patient admitted to: Inpatient With expected LOS: >2 Midnights Patient will require the following post-hospital care: None Practitioner: I am a practitioner with admitting privileges, knowledge of patient current condition, hospital course, and medical plan of care. Services: Services provided to patient in accordance with Admission requirements found in Title 42 Section 412.3 of the Code of Federal Regulations <Citlaly Quintana - Last Filed: 03/16/24 09:15> Patient History Date of Service: 03/16/24 Reason for admission: kidney stone, uti History of Present Illness: Ms. Sanchez is a 68-year-old female with a history of kidney stones, kidney cancer, borderline hypertension, and obesity. She presented to the emergency department today after about an hour of severe pain to her left flank with radiation towards the right upper abdomen. On imaging in the emergency department she has "mild left-sided hydronephrosis secondary to a 7 mm stone in the left proximal ureter. Status postcholecystectomy. Extrahepatic biliary duct dilatation likely related to the postcholecystectomy state. Correlate with LFTs." She was given a 1 L normal saline bolus, 30 mg of Toradol IV, Pepcid 20 mg IV, and 1 g of Rocephin IV piggyback in the emergency department. Initially her vital signs were blood pressure 194/74, 74, 18, 97.6, 97% on room air. Ms. Sanchez weighs at 119.75 kg. Currently, she remains afebrile, her blood pressure is 112/63 with a heart rate of 94 and she is 99% on room air. Labs: White count 9.9 with neutrophils of 92.6%, H/H 12.2/36.3 with 174 platelet. Chemistries sodium 141, potassium 3.3, chloride 109, bicarb 25, glucose 113, BUN 19 creatinine 0.83 with a GFR of 77, LFTs and bili normal, lipase 36. UA shows turbid appearance, 2+ blood, 1+ nitrites, 500 esterase, greater than 50 WBCs, 21-50 RBCs. It was reflexed to culture. The emergency department Physician consulted Dr. Hubbard for management of possible infected stone. Home medications list reviewed: Yes (Jeannie) - Past Medical/Surgical History Has patient received pneumonia vaccine in the past: No Diabetic: No -: mildly elevated Hgb A1c -: Sciatica -: diet controlled HTN -: Kidney ca 2018 - mass removed, kidneys intact -: arthritis -: 1987 Lap-Band -: 1991 Analisa took, breast lift, lipo -: 1991 left knee cartilage -: 2000 partial hysterectomy/bladde 2008 ovarian cyst with total hysterectomy -: 2014 kidney cancer mass removed, kidneys intact -: 2018 and 2023 laser vein stripping of the lower extremities bilateral -: 2019 right foot bunionectomy Psychosocial/ Personal History: Lives at home with her son, , independent, - Social History Smoking Status: Never smoker Alcohol use: No CD- Drugs: No Caffeine use: Yes Place of Residence: Home <Citally Quintana - Last Filed: 03/16/24 09:15> Date of Service: 03/16/24 <Mark Cortez - Last Filed: 03/16/24 23:14> Allergies acetaminophen [From Lortab] Allergy (Verified 03/16/24 11:43) Unknown amoxicillin Allergy (Verified 03/16/24 16:52) yeast infection codeine Allergy (Verified 03/16/24 11:43) Unknown hydrocodone bitartrate [From Lortab] Adverse Reaction (Verified 03/16/24 11:42) Unknown Penicillins Adverse Reaction (Verified 03/16/24 09:25) Rash loratab Allergy (Uncoded 04/21/15 17:54) Unknown Home Medications: Tirzepatide [Mounjaro] 7.5 mg SQ EVERY 7TH DAY 03/16/24 Review of Systems 10-point ROS is otherwise unremarkable General: Malaise Genitourinary: As per HPI <Citlaly Quintana - Last Filed: 03/16/24 09:15> Physical Examination - Physical Exam General: Alert, In no apparent distress, Oriented x3, Obese HEENT: Atraumatic, Normocephalic Neck: Supple Respiratory: Clear to auscultation bilaterally, Normal air movement Cardiovascular: Normal pulses, Regular rate/rhythm, Normal S1 S2 Capillary refill: <2 Seconds Gastrointestinal: Normal bowel sounds, Other (mild left flank tenderness) Musculoskeletal: No clubbing Integumentary: Other (lower extremities darkened (hx of PVD)) Neurological: Normal speech, Normal tone, Normal affect Lymphatics: No axilla or inguinal lymphadenopathy External genitalia: Deferred Rectal: Deferred - Studies Laboratory Data (last 24 hrs) 03/16/24 03/16/24 06:25 06:25 WBC 9.90 Hgb 12.2 Hct 36.3 Plt Count 174 Sodium 141 Potassium 3.3 L BUN 19 H Creatinine 0.83 Glucose 113 H Total Bilirubin 0.4 AST 25 ALT 28 Alkaline Phosphatase 79 Lipase 36 <QuintanaCitlaly Saeid - Last Filed: 03/16/24 09:15> - Studies Laboratory Data (last 24 hrs) 03/16/24 03/16/24 03/16/24 06:25 06:25 06:25 WBC Hgb Hct Plt Count Sodium 141 Potassium 3.3 L BUN 19 H Creatinine 0.83 Glucose 113 H Uric Acid 4.6 Phosphorus 2.3 L Magnesium 2.0 Total Bilirubin 0.4 AST 25 ALT 28 Alkaline Phosphatase 79 Lipase 36 03/16/24 06:25 WBC 9.90 Hgb 12.2 Hct 36.3 Plt Count 174 Sodium Potassium BUN Creatinine Glucose Uric Acid Phosphorus Magnesium Total Bilirubin AST ALT Alkaline Phosphatase Lipase <Mark Cortez C - Last Filed: 03/16/24 23:14> Assessment and Plan - Plan 7mm left UPJ stone with UTI Observe for sepsis, blood and urine cultures pending consult Dr. Hubbard (done from ED) NPO until Dr. Hubbard assessment/plan Cefepime 1 gm IV q 12h pain control Borderline HTN monitor and trend Venous insufficiency TEDs neurovascular checks q 8h Lovenox 40mg sc daily VTE/GI prophylaxis lovenox/protonix - Advance Directives Does patient have a Living Will: No Does patient have a Durable POA for Healthcare: No - Code Status/Comfort Care Code Status Assessed: Yes (Full) <Citlaly Quintana - Last Filed: 03/16/24 09:15> - Plan Pt seen and examined. I agree withthe note by the ELECTRIC CUTTER OPERATOR. Pt is a 68yo female with past medical history of kidney stones, kidney cancer, hypertension, and obesity who presents with severe left flank pain that radiated to the right upper abdomen. On admission, CT abd/pelvis show mild left-sided hydronephrosis secondary to a 7 mm stone in the left proximal ureter. It shows evidence of postcholecystectomy. Extrahepatic biliary duct dilatation likely related to the postcholecystectomy state. Lab studies show WBC 9.9, Hgb 12.2, K 3.3, NA 141, Cr 0.83, TSH 1.64, LDH 288 and glucose 113. ER physician consulted Dr. Hubbard. At bedside, pt is in NAD A/P: 7 mm left UPJ stone: Continue IVF. Consulted Urology. UTI: Continue cefepime and f/u urine cx. Htn: Continue home med Obesity: Pt was advised to lose weight. DVT ppx: lovenox Code: full <Mark Cortez - Last Filed: 03/16/24 23:14>
[2024-03-16 09:59] LABS: Thyroid Stimulating Hormone 1.64 uIU/mL (0.358-3.740); Uric Acid 4.6 mg/dL (2.6-6.0)
[2024-03-16] MEDS: ACETAMINOPHEN 500 MG TAB PO PRN (11:44)
[2024-03-16] MEDS: NA CHLORIDE 0.9% 1,000 ML IV SCH (11:45)
[2024-03-16 14:27] VITALS: BMI 48.2
[2024-03-16] MEDS: KCL 20 MEQ/100 mL IVPB 20 MEQ/100 ML BAG IV SCH (15:14)
[2024-03-16] MEDS ORDERED: propofoL 200 MG/20 ML VIAL IV ONE ×2 (16:43→17:17)
[2024-03-16] MEDS ORDERED: FENTANYL CITR 100 MCG/2 ML ONE ×2 (16:43→17:17)
[2024-03-16] MEDS ORDERED: MIDAZOLAM HCL 2 MG/2 ML INJ ONE ×2 (17:01→17:14)
--- NOTE | 2024-03-16 17:09 | P.CNS ---
Date of Consult: 03/16/24 Reason for Consult: Obstructive ureterolithiasis Chief Complaint: kidney stone, uti History of Present Illness: 68-year-old woman with hypertension, borderline DM 2, status post left partial nephrectomy in 2014 for RCCa who presents as a first-time stone former with left flank pain radiating into her left lower quadrant. She denied any associated fevers, chills, nausea or vomiting. She also denied any dysuria or gross hematuria. The pain started last night around 11:30 PM/midnight and was severe in nature. As a result, she presented to the emergency department for evaluation. Past medical history: As above Past surgical history: Lap band, tummy tuck, laparoscopic hysterectomy, ovarian cystectomy, vein stripping Allergies: Penicillin, hydrocodone and Tylenol Examination: Patient slightly uncomfortable appearing but in no acute distress Alert, awake, oriented x 3 No dyspnea or sign of respiratory distress No cervical/supraclavicular adenopathy or thyromegaly Pulse 2+ radial and regular Abdomen soft, nontender Resting in a hospital bed with no Homans' sign bilaterally 03/16/2024 creatinine 0.83, WBC 9.9, hemoglobin 12.2, platelets 174 03/16/2024 CT abdomen and pelvis without contrast impression: Mild left-sided hydronephrosis secondary to a 7 mm stone in the left proximal ureter. Cholecystectomy. Extrahepatic biliary dilation likely related to the postcholecystectomy state. Findings: Grade 2 anterolisthesis of L5 on S1 with osseous fusion across the disc. Multilevel degenerative changes present in the spine. -I reviewed the images of the CT scan and noted the following: Left hydronephrosis with 8 mm proximal left ureteral calculus. Small kidneys noted bilaterally relative to her habitus. Bilateral perinephric stranding noted. No nephrolithiasis bilaterally. Assessment and recommendation: 68-year-old woman with hypertension, borderline DM 2, status post left partial nephrectomy in 2015 for RCCa, first-time stone former with left 8 mm proximal ureteral calculus, left hydronephrosis and acute left flank pain. -Given the size of the stone, her likelihood of successful spontaneous passage is less than 20 to 30%. I counseled the patient about this, and thus suggested she consider intervention today to relieve the obstruction from the stone. I explained we lack the necessary lithotripsy equipment in order to manage the stone today, and also since she has had some chills, the potential for infection yet exists. As a result, I recommended cystoscopy with left ureteral stent placement. I counseled her on how the procedure was performed in detail and explained that the stent was a foreign body that would treat the obstruction and renal colic with stent discomfort potentially. I counseled her that the stent was a foreign body that must be removed and she will subsequently require definitive surgical management via ureteroscopy with laser lithotripsy which will be scheduled in the near future. Risk of the procedure were discussed to include urethral stricture, ureteral stricture, ureteral injury, bleeding, infection, failure to achieve desired result and need for percutaneous nephrostomy tube placement. Side effects of stent discomfort were discussed. -She agreed and will be scheduled accordingly for cystoscopy with left retrograde pyelography and left ureteral stent placement today. Consent signed accordingly. Allergies acetaminophen [From Lortab] Allergy (Verified 03/16/24 11:43) Unknown amoxicillin Allergy (Verified 03/16/24 16:52) yeast infection codeine Allergy (Verified 03/16/24 11:43) Unknown hydrocodone bitartrate [From Lortab] Adverse Reaction (Verified 03/16/24 11:42) Unknown Penicillins Adverse Reaction (Verified 03/16/24 09:25) Rash loratab Allergy (Uncoded 04/21/15 17:54) Unknown Home medications list reviewed: Yes Home Medications: Tirzepatide [Mounjaro] 2.5 mg SQ 03/16/24 - Past Medical/Surgical History Diabetic: Yes -: mildly elevated Hgb A1c -: Sciatica -: diet controlled HTN -: Kidney ca 2018 - mass removed, kidneys intact -: arthritis -: 1987 Lap-Band -: 1991 Analisa took, breast lift, lipo -: 1991 left knee cartilage -: 2000 partial hysterectomy/bladde 2008 ovarian cyst with total hysterectomy -: 2014 kidney cancer mass removed, kidneys intact -: 2018 and 2023 laser vein stripping of the lower extremities bilateral -: 2019 right foot bunionectomy Psychosocial/ Personal History: Lives at home with her son, , independent, - Social History Smoking Status: Never smoker Alcohol use: No CD- Drugs: No Caffeine use: Yes Place of Residence: Home Physical Examination Temp Pulse Resp BP Pulse Ox 96.4 F L 74 15 113/54 L 100 03/16/24 12:00 03/16/24 12:00 03/16/24 12:00 03/16/24 12:00 03/16/24 12:00 Laboratory Data (last 24 hrs) 03/16/24 03/16/24 03/16/24 06:25 06:25 06:25 WBC Hgb Hct Plt Count Sodium 141 Potassium 3.3 L BUN 19 H Creatinine 0.83 Glucose 113 H Uric Acid 4.6 Phosphorus 2.3 L Magnesium 2.0 Total Bilirubin 0.4 AST 25 ALT 28 Alkaline Phosphatase 79 Lipase 36 03/16/24 06:25 WBC 9.90 Hgb 12.2 Hct 36.3 Plt Count 174 Sodium Potassium BUN Creatinine Glucose Uric Acid Phosphorus Magnesium Total Bilirubin AST ALT Alkaline Phosphatase Lipase - Problems (1) Acute left flank pain Current Visit: Yes Status: Acute (2) Hydronephrosis, left Current Visit: Yes Status: Acute (3) Ureterolithiasis Current Visit: Yes Status: Acute Conclusions/Impression: see A&P in HPI Critical Care: No Time Spent Managing Pts care (In Minutes): 25
[2024-03-16] MEDS: LIDOCAINE JELLY 2% 5 ML SYRINGE TOP ONE (17:17)
[2024-03-16] MEDS: NA CHLORIDE 0.9% 100 ML ONE (17:53)
[2024-03-16] MEDS: CEFEPIME 1 GM/VIAL ONE (17:53)
[2024-03-16] MEDS: CEFEPIME 1 GM in NA CHLORIDE 0.9% 100 ML IV SCH (18:00)
--- NOTE | 2024-03-16 18:09 | P.OP ---
Date of Service: 03/16/24 Preoperative diagnoses: 8 mm proximal left ureterolithiasis Left hydronephrosis Acute left flank pain Postoperative diagnoses: 8 mm proximal left ureterolithiasis Left hydronephrosis Acute left flank pain Grade 3 cystocele Grade 3 rectocele Enterocele/vaginal vault prolapse Principal procedures: Cystoscopy Left retrograde pyelography Left 6 Ugandan by 24 cm double-J ureteral stent placement 16 Ugandan urethral Coe catheter placement Indication for procedure: 68-year-old woman with hypertension, borderline DM 2, status post left partial nephrectomy in 2014 for RCCa, first-time stone former with left 8 mm proximal ureteral calculus, left hydronephrosis and acute left flank pain. Procedure note: The patient was consented in the preoperative holding area before being transferred to the operative suite where general anesthesia was induced. She was given ceftriaxone in the emergency department this morning. She was placed in the lithotomy position, padded and secured to the table appropriately, and her genitalia was prepped with Hibiclens before being draped in standard fashion. Lidocaine Uro-Jet was applied intraurethrally for local anesthesia. Using the 22 Ugandan rigid cystoscope, I attempted to pass via the urethra into her bladder, but the marked angulation associated with her cystocele and vaginal vault prolapse prohibited ease of entry. As a result, I packed her vaginal vault with some wet Ray-Mirna sponges to reduce the bladder back into place somewhat, and then I was able to navigate down a very steep decline the urethral meatus and via the urethra into her bladder. There, I decompressed her bladder of urine which was odiferous. I then refilled the bladder with sterile saline and identified the left ureteral orifice, which was orthotopic in position. I cannulated the left ureteral orifice using the tip of a sensor wire and a 5 Ugandan ureteral access catheter. Left retrograde pyelography: Using a 70: 30 mixture of Omnipaque and saline, contrast was injected via the lumen of the 5 Ugandan ureteral access catheter and did propagate up the distal into the mid and proximal ureter very slowly before traversing a point of radiolucent obstruction in the proximal ureter before entering the renal pelvis where moderate pelvic caliectasis was noted. Without attempting to delineate the calyces specifically or fill the renal pelvis, I stopped injecting contrast, and I passed a sensor wire via the 5 Ugandan ureteral access catheter up the ureter and into her upper pole calyx of the left kidney. I then remove the 5 Ugandan ureteral access catheter leaving the wire in place, and I passed a 6 Ugandan by 24 cm double-J ureteral stent over the wire into the collecting system with a coil observed fluoroscopically formed in her renal pelvis at the UPJ. An additional coil was formed within her bladder. This did allow decompression of some very cloudy and infected appearing urine. As a result, I decompressed her bladder of fluid and urine and then refilled it with sterile saline before placing a 16 Ugandan Coe catheter via her urethra into her bladder. I filled the balloon with 10 cc of sterile water and then connected the catheter bag to a floor bag. I removed the wet Ray-Mirna sponges used used to reduce the vaginal vault prolapse, and took the patient out of the lithotomy position. She was then transferred to a stretcher before being transferred to the recovery room in good condition. Complications: None Discharge disposition: Given the apparent appearance of at least an acute cystitis in the setting of ureterolithiasis and obstruction with possible pyelonephrosis/pyelonephritis, agree with continuing patient on aggressive IV antimicrobial therapy with either ceftriaxone or cefepime and monitoring for any signs of febrile state or SIRS/sepsis. Once cultures result from that taken hopefully in the emergency department, patient may be expectantly discharged on a 14-day course of antimicrobial. Subsequent follow-up should be established with me as an outpatient in the urology clinic to discuss definitive management of the stone, which will require left-sided ureteroscopy with laser lithotripsy and stent exchange. Since the stone is radiolucent, no other recommended option for management is essentially available.
[2024-03-16] MEDS: NA CHLORIDE 0.9% 1,000 ML ONE (18:20)
[2024-03-16] MEDS ORDERED: POTASSIUM 25 MEQ EFFERV TAB PO ONE (20:00)
--- NOTE | 2024-03-16 20:33 | RAD REPORT ---
EXAM DESCRIPTION: RAD - Urography Retrograde - 03/16/2024 5:41 pm CLINICAL HISTORY: STENT COMPARISON: None available. FINDINGS: Seven Images were sent to PACS, documenting fluoroscopy use during an image guided retrogr mica pyelography and left ureteral stenting procedure. No radiologist was available for the procedure, nor will any image interpretation he provided. Please refer to the procedural report for additional details. Fluoroscopy time: 12 seconds. IMPRESSION: Documentation of fluoroscopy utilization as above.
[2024-03-16] MEDS ORDERED: CEFEPIME 1 GM in NA CHLORIDE 0.9% 100 ML IV SCH (21:00)
[2024-03-16] MEDS: POTASSIUM 25 MEQ EFFERV TAB PO ONE (21:25)
[2024-03-17 05:03] LABS: Absolute Lymphocytes (CBC) 0.3 K/uL (0.7-4.9); Absolute Monocytes 0.2 K/uL (0.1-1.3); Absolute Neutrophil 7.7 K/uL (1.8-8.0); Basophils % 0.4 % (0-1.3); Hematocrit 35.9 % (36.0-45.0); Hemoglobin 12.1 g/dL (12.0-15.0); Lymphocytes % 4.1 % (15.3-44.8); MCH 31.9 pg (27.0-35.0); MCHC 33.8 g/dL (32.0-36.0); MCV 94.4 fL (80-100); MPV 7.5 fL (7.6-11.3); Monocytes % 2.8 % (3.3-12.3); Neutrophils % 92.7 % (41.7-73.7); Nucleated Red Blood Cells % 0.1 % (0-0); Platelets 165 thou/uL (152-406); RBC Red Blood Cell Count 3.81 M/uL (3.86-4.86); Red Cell Distribution Width 13.4 % (12.1-15.2)
[2024-03-17 05:19] LABS: Albumin 3.4 g/dL (3.4-5.0); Anion Gap 10.1 mEq/L (5.0-15.0); Bilirubin Total 0.4 mg/dL (0.2-1.0); Globulin 3.4 g/dL (2.3-3.5); Magnesium 2.1 mg/dL (1.6-2.4); Potassium 4.1 mEq/L (3.5-5.1); Protein, Total 6.8 g/dL (6.4-8.2)
[2024-03-17] MEDS: ENOXAPARIN 40 MG/0.4 ML SQ SCH (09:54)
[2024-03-17] MEDS: CEFEPIME 1 GM in NA CHLORIDE 0.9% 100 ML IV SCH ×2 (09:54→20:31)
[2024-03-17] MEDS: FOLIC ACID 1 MG, MULTIVITAMINS INJ 10 ML, THIAMINE HCL 100 MG in NA CHLORIDE 0.9% 1,000 ML IV ONE (09:55)
[2024-03-17] MEDS: Mupirocin NASAL 2 APPL/1 GM TUBE NAS SCH (09:56)
[2024-03-17] MEDS: PANTOPRAZOLE 40 MG INJ IVP SCH (09:57)
--- NOTE | 2024-03-17 10:20 | P.PN ---
Subjective Date of Service: 03/17/24 Chief Complaint: kidney stone, uti Subjective: Improving <Citlaly Quintana - Last Filed: 03/17/24 10:40> Date of Service: 03/17/24 <Kassandra Cortezines Vásquez - Last Filed: 03/17/24 10:55> Review of Systems 10-point ROS is otherwise unremarkable Genitourinary: Other (improved) <Citlaly Quintana - Last Filed: 03/17/24 10:40> Physical Examination - Vital Signs Temperature: 98.1 F Blood Pressure: 186/55 Pulse: 83 Respirations: 18 Pulse Ox (%): 96 - Physical Exam General: Alert, In no apparent distress, Oriented x3 HEENT: Atraumatic, Normocephalic Neck: Supple Respiratory: Clear to auscultation bilaterally, Normal air movement Cardiovascular: Normal pulses, Regular rate/rhythm, Normal S1 S2 Capillary refill: <2 Seconds Gastrointestinal: Soft and benign Musculoskeletal: No clubbing Integumentary: No rashes Neurological: Normal speech, Normal tone, Normal affect Lymphatics: No axilla or inguinal lymphadenopathy External genitalia: Deferred Rectal: Deferred - Studies Laboratory Data (last 24 hrs) 03/16/24 03/16/24 06:25 06:25 Uric Acid 4.6 Phosphorus 2.3 L Magnesium 2.0 <Citlaly Quintana - Last Filed: 03/17/24 10:40> - Studies Laboratory Data (last 24 hrs) 03/16/24 03/16/24 06:25 06:25 Uric Acid 4.6 Phosphorus 2.3 L Magnesium 2.0 <DayamanojnikhilEduardoyou Vásquez - Last Filed: 03/17/24 10:55> Assessment And Plan - Plan 7mm left UPJ stone with UTI Observe for sepsis, blood and urine cultures pending consult Dr. Hubbard (done from ED) NPO until Dr. Hubbard assessment/plan Cefepime 1 gm IV q 12h pain control 03/17/24 pt had stent placed per Dr Hubbard yest. rec awaiting cx results and the dc on two weeks of IV abx orders for midline, HH, and fdc IV Merrem placed Borderline HTN monitor and trend Venous insufficiency TEDs neurovascular checks q 8h Lovenox 40mg sc daily VTE/GI prophylaxis lovenox/protonix <Citlaly Quintana - Last Filed: 03/17/24 10:40> - Plan Pt seen and examined. I agree with the note by the [employer] SUPERINTENDENT. Dr. Hubbard did cystoscopy with left ureteral stent placement on 03/16/24. Will continue iv abx for [address] PICC Line. manager office is setting up home iv abx infusion. Pt was advised to lose weight. <Mark Cortez - Last Filed: 03/17/24 10:55>
[2024-03-17 22:59] VITALS: O2SAT 98
[2024-03-18 05:10] LABS: Absolute Lymphocytes (CBC) 0.8 K/uL (0.7-4.9); Absolute Monocytes 0.6 K/uL (0.1-1.3); Absolute Neutrophil 4.7 K/uL (1.8-8.0); Basophils % 0.4 % (0-1.3); Eosinophils % 0.6 % (0-4.4); Hematocrit 32.9 % (36.0-45.0); Lymphocytes % 12.9 % (15.3-44.8); MCH 31.8 pg (27.0-35.0); MCHC 33.4 g/dL (32.0-36.0); MCV 95.1 fL (80-100); MPV 7.7 fL (7.6-11.3); Monocytes % 9.9 % (3.3-12.3); Neutrophils % 76.2 % (41.7-73.7); Platelets 137 thou/uL (152-406); RBC Red Blood Cell Count 3.46 M/uL (3.86-4.86); Red Cell Distribution Width 13.4 % (12.1-15.2)
[2024-03-18 05:37] LABS: Albumin/Globulin Ratio 1.1 (1.1-1.8); Anion Gap 7.4 mEq/L (5.0-15.0); Bilirubin Total 0.3 mg/dL (0.2-1.0); Globulin 2.8 g/dL (2.3-3.5); Magnesium 1.9 mg/dL (1.6-2.4); Potassium 3.4 mEq/L (3.5-5.1); Protein, Total 5.8 g/dL (6.4-8.2)
[2024-03-18] MEDS: POTASSIUM CL SA 10 MEQ TAB PO ONE (08:52)
--- NOTE | 2024-03-18 12:10 | P.DS ---
Admission Date: 03/16/24 Discharge Date: 03/18/24 Reason for Admission: kidney stone, uti Consultations: Dr. Hubbard Procedures: left ureteral stent Brief History of Present Illness: Ms. Sanchez is a 68-year-old female with a history of kidney stones, kidney cancer, borderline hypertension, and obesity. She presented to the emergency department today after about an hour of severe pain to her left flank with radiation towards the right upper abdomen. On imaging in the emergency department she has "mild left-sided hydronephrosis secondary to a 7 mm stone in the left proximal ureter. Status postcholecystectomy. Extrahepatic biliary duct dilatation likely related to the postcholecystectomy state. Correlate with LFTs." She was given a 1 L normal saline bolus, 30 mg of Toradol IV, Pepcid 20 mg IV, and 1 g of Rocephin IV piggyback in the emergency department. Initially her vital signs were blood pressure 194/74, 74, 18, 97.6, 97% on room air. Ms. Sanchez weighs at 119.75 kg. Currently, she remains afebrile, her blood pressure is 112/63 with a heart rate of 94 and she is 99% on room air. Labs: White count 9.9 with neutrophils of 92.6%, H/H 12.2/36.3 with 174 platelet. Chemistries sodium 141, potassium 3.3, chloride 109, bicarb 25, glucose 113, BUN 19 creatinine 0.83 with a GFR of 77, LFTs and bili normal, lipase 36. UA shows turbid appearance, 2+ blood, 1+ nitrites, 500 esterase, greater than 50 WBCs, 21-50 RBCs. It was reflexed to culture. The emergency department Physician consulted Dr. Hubbard for management of possible infected stone. Hospital Course: Ms. Sanchez did well over her course of hospitalization. She received a left ureteral stent per Dr. Hubbard. She has an 8 mm left proximal ureter stone. Her urinary tract is growing 4+ gram-negative rods. She received midline placement yesterday to her left upper arm. She has home health orders for 2 g of Merrem IV piggyback twice daily x 14 days. She will need to follow-up with Dr. Hubbard in 1 to 2 weeks. <Citlaly Quintana - Last Filed: 03/18/24 12:05> Admission Date: 03/16/24 Discharge Date: 03/18/24 Hospital Course: Pt seen and examined. I agree with the note by the CHECK EXAMINER. Urology did Cystoscopy and placed left ureteral stent. COntinue iv abx for 2 weeks. F/u with Dr. Hubbard in 1 - 2 weeks. Ok to discharge pt. <Mark Cortez - Last Filed: 03/18/24 12:21> Disposition: ROUTINE DISCHARGE Discharge Condition: GOOD Vital Signs/Physical Exam: Temp Pulse Resp BP Pulse Ox 97.6 F 73 16 140/75 100 03/18/24 08:00 03/18/24 08:00 03/18/24 08:00 03/18/24 08:00 03/18/24 08:00 Laboratory Data at Discharge: WBC 6.20 thou/uL (4.3-10.9) 03/18/24 04:54 Hgb 11.0 g/dL (12.0-15.0) L D 03/18/24 04:54 Hct 32.9 % (36.0-45.0) L 03/18/24 04:54 Plt Count 137 thou/uL (152-406) L 03/18/24 04:54 Sodium 140 mEq/L (136-145) 03/18/24 04:54 Potassium 3.4 mEq/L (3.5-5.1) L D 03/18/24 04:54 BUN 11 mg/dL (7-18) 03/18/24 04:54 Creatinine 0.58 mg/dL (0.55-1.02) 03/18/24 04:54 Glucose 97 mg/dL (74-106) 03/18/24 04:54 Uric Acid 4.6 mg/dL (2.6-6.0) 03/16/24 06:25 Phosphorus 2.3 mg/dL (2.5-4.9) L 03/16/24 06:25 Magnesium 1.9 mg/dL (1.6-2.4) 03/18/24 04:54 Total Bilirubin 0.3 mg/dL (0.2-1.0) 03/18/24 04:54 AST 13 U/L (15-37) L 03/18/24 04:54 ALT 23 U/L (13-56) 03/18/24 04:54 Alkaline Phosphatase 55 U/L (45-117) 03/18/24 04:54 Triglycerides 44 mg/dL (<150) 03/17/24 04:50 Cholesterol 153 mg/dL (<200) 03/17/24 04:50 HDL Cholesterol 65 mg/dL (40-60) H 03/17/24 04:50 Cholesterol/HDL Ratio 2.35 03/17/24 04:50 Lipase 36 U/L (13-75) 03/16/24 06:25 <Quintana,Citlaly Saeid - Last Filed: 03/18/24 12:05> Vital Signs/Physical Exam: Temp Pulse Resp BP Pulse Ox 97.6 F 73 16 140/75 100 03/18/24 08:00 03/18/24 08:00 03/18/24 08:00 03/18/24 08:00 03/18/24 08:00 Laboratory Data at Discharge: WBC 6.20 thou/uL (4.3-10.9) 03/18/24 04:54 Hgb 11.0 g/dL (12.0-15.0) L D 03/18/24 04:54 Hct 32.9 % (36.0-45.0) L 03/18/24 04:54 Plt Count 137 thou/uL (152-406) L 03/18/24 04:54 Sodium 140 mEq/L (136-145) 03/18/24 04:54 Potassium 3.4 mEq/L (3.5-5.1) L D 03/18/24 04:54 BUN 11 mg/dL (7-18) 03/18/24 04:54 Creatinine 0.58 mg/dL (0.55-1.02) 03/18/24 04:54 Glucose 97 mg/dL (74-106) 03/18/24 04:54 Uric Acid 4.6 mg/dL (2.6-6.0) 03/16/24 06:25 Phosphorus 2.3 mg/dL (2.5-4.9) L 03/16/24 06:25 Magnesium 1.9 mg/dL (1.6-2.4) 03/18/24 04:54 Total Bilirubin 0.3 mg/dL (0.2-1.0) 03/18/24 04:54 AST 13 U/L (15-37) L 03/18/24 04:54 ALT 23 U/L (13-56) 03/18/24 04:54 Alkaline Phosphatase 55 U/L (45-117) 03/18/24 04:54 Triglycerides 44 mg/dL (<150) 03/17/24 04:50 Cholesterol 153 mg/dL (<200) 03/17/24 04:50 HDL Cholesterol 65 mg/dL (40-60) H 03/17/24 04:50 Cholesterol/HDL Ratio 2.35 03/17/24 04:50 Lipase 36 U/L (13-75) 03/16/24 06:25 <Mark Cortez - Last Filed: 03/18/24 12:21> Diet: Low sodium Activity: Ad aram <Citlaly Quintana Saeid - Last Filed: 03/18/24 12:05> <Mark Cortez - Last Filed: 03/18/24 12:21> Home Medications: Tirzepatide [Mounjaro] 7.5 mg SQ EVERY 7TH DAY 03/16/24 Physician Discharge Instructions: You have a new left sided ureteral stent that has been placed. It extends from inside your kidney down into your bladder. Please recall: This is a foreign body, which must be removed within 6 months maximum to prevent complications of it becoming encrusted, like barnacles on a ship, or a source for chronic infection. Subsequent surgical intervention will be required to manage the obstructing kidney stone in your left ureter, tube that drains the kidney to the bladder, as the stone has not been removed with the placement of the stent today. Simply the obstruction of the kidney has been relieved with the placement of the stent. Should you have significant issues with urinary frequency, the urge to urinate, pain when you urinate associated with the left ureteral stent, notify me, Dr. Hubbard, via my office at [phone], and I may be able to prescribe a prescription medication called oxybutynin/Ditropan XL, which will help. Notify me if you develop any fever (temperature greater than 100.4 Fahrenheit), intractable nausea or vomiting, increasing pain not controlled by pain medications, or other unusual signs or symptoms. It is common to see some blood in the urine following your procedure. It will be light pink/cranberry colored initially, and then it will become dark or tea colored, when the blood oxidized is in the urine, before it finally clears up. It is only a concern if you note bright red and thick/nontranslucent (not see-through) blood in the urine that appears like tomato juice. Notify me if you have any difficulty urinating, or if you feel the need to push or strain to urinate, as this may be a problem. If you do not require a narcotic for pain management, you may take plain Tylenol (up to 1000 mg every 6 hours maximum) and alternate this every 4 hours with Motrin/ibuprofen (up to 800 mg every 8 hours maximum) for your pain. Please take note and keep the total 24-hour daily dose of Tylenol/acetaminophen less than 4000 mg / 4 g from all sources. You may purchase [id number]-[id number] Azo (Pyridium) if you have burning with urination. Please note, it will turn your urine bright orange. Please contact my office to arrange follow-up within the next couple of months to arrange definitive surgical management of the obstructing ureteral stone. All the best WBR Ms. Sanchez did well over her course of hospitalization. She received a left ureteral stent per Dr. Hubbard. She has an 8 mm left proximal ureter stone. Her urinary tract is growing 4+ gram-negative rods. She received midline placement yesterday to her left upper arm. She has home health orders for 2 g of Merrem IV piggyback twice daily x 14 days. She will need to follow-up with Dr. Hubbard in 1 to 2 weeks. New medications: As per Dr. Hubbard above and Merrem 2 g IV piggyback twice daily for 14 days. Followup: Maria Ines Thornton MD [Primary Care Provider] - Justo Hubbard [ACTIVE - CAN ADMIT] -
[2024-03-18] MEDS: POTASSIUM 25 MEQ EFFERV TAB PO ONE (16:47)
[2024-03-18] MEDS: HYDROCODONE/APAP 5/325 MG TAB PO ONE (16:47)
[2024-03-18 16:55] VITALS: BP 185/74; TEMP 98.4
[2024-03-18] MEDS ORDERED: CEFEPIME 2 GM in NA CHLORIDE 0.9% 100 ML IV SCH (21:00)
== END 2024-03-18 19:30 | disposition home health service (06) | DRG 660 ==
LOC: ER 01:19 → 2ND 09:05
PROVIDERS: ADMIT Hospitalist; ATTEND Hospitalist
PROC: BT1F1ZZ Fluoroscopy of Left Kidney, Ureter and Bladder using Low Osmolar Contrast (ICD-10-PCS; 2024-03-16)
PROC: 0T9B80Z Drainage of Bladder with Drainage Device, Via Natural or Artificial Opening Endoscopic (ICD-10-PCS; 2024-03-16)
PROC: 0T778DZ Dilation of Left Ureter with Intraluminal Device, Via Natural or Artificial Opening Endoscopic (ICD-10-PCS; principal; 2024-03-16 13:45)
PROC: 02HV33Z Insertion of Infusion Device into Superior Vena Cava, Percutaneous Approach (ICD-10-PCS; 2024-03-17)
DX: N13.6 Pyonephrosis (principal); Z68.42 Body mass index [BMI] 45.0-49.9, adult; E66.9 Obesity, unspecified; I10 Essential (primary) hypertension; K21.9 Gastro-esophageal reflux disease without esophagitis; E87.6 Hypokalemia; I87.2 Venous insufficiency (chronic) (peripheral); N81.5 Vaginal enterocele; Z88.0 Allergy status to penicillin; Z88.5 Allergy status to narcotic agent; Z88.1 Allergy status to other antibiotic agents; Z88.8 Allergy status to other drugs, medicaments and biological substances; Z85.528 Personal history of other malignant neoplasm of kidney
CPT/HCPCS: 36415; 74176; 74420; 80053; 80061; 81001; 82947; 83036; 83615; 83690; 83735; 84100; 84132; 84443; 84550; 85025; 87086; 87088; 96361; 96365; 96366; 96375; 99285; J0692; J0696; J1650; J2250; J2405; J2470; J2704; J3010; J3411; J3480; J7030

== ENCOUNTER 2024-05-11 08:26 | Day surgery (SDC) | payer BC ==
[2024-05-07 09:01] LABS: PT Prothrombin Time 11.9 SECONDS (9.4-12.5); Protime INR 1.06
[2024-05-07 09:08] LABS: Absolute Eosinophils 0.2 K/uL (0-0.5); Absolute Lymphocytes (CBC) 0.8 K/uL (0.7-4.9); Absolute Monocytes 0.4 K/uL (0.1-1.3); Absolute Neutrophil 3.2 K/uL (1.8-8.0); Basophils % 0.9 % (0-1.3); Eosinophils % 3.8 % (0-4.4); Hematocrit 36.3 % (36.0-45.0); Hemoglobin 12.1 g/dL (12.0-15.0); Lymphocytes % 17.6 % (15.3-44.8); MCH 31.2 pg (27.0-35.0); MCHC 33.2 g/dL (32.0-36.0); MCV 93.9 fL (80-100); MPV 7.7 fL (7.6-11.3); Monocytes % 8.3 % (3.3-12.3); Neutrophils % 69.4 % (41.7-73.7); Platelets 182 thou/uL (152-406); RBC Red Blood Cell Count 3.87 M/uL (3.86-4.86)
[2024-05-07 09:11] LABS: Anion Gap 7.7 mEq/L (5.0-15.0); Potassium 3.7 mEq/L (3.5-5.1)
--- NOTE | 2024-05-07 10:05 | RAD REPORT ---
EXAMINATION: TWO VIEW CHEST XR CLINICAL INDICATION: Female, 68 years old. [facility] MA[facility] pre op pending surgery. Hypertension TECHNIQUE: 2 view radiographs of the chest were performed. COMPARISON: 04/17/2015 FINDINGS: The lungs are well inflated and clear. No pneumothorax or sizable effusion. The heart is normal in si ze. Mediastinal contours are unremarkable. IMPRESSION: No acute or significant abnormalities.
--- NOTE | 2024-05-07 16:32 | EKG ---
Test Date: 2024-05-07 Test Time: 08:23:31 Actuarial Intern: ANN MARIE MEASUREMENT RESULTS: Intervals: Rate: 68 OH: 152 QRSD: 78 QT: 400 QTc: 425 Crump: P: -22 OH: 152 QRS: 24 T: 66 INTERPRETIVE STATEMENTS: Normal sinus rhythm Normal ECG Compared to ECG 04/17/2015 14:38:46 Left ventricular hypertrophy no longer present Electronically Signed On 05-07-24 16:31:39 CDT by Dany Cruz
[2024-05-11] MEDS: Ringers Lactate 1,000 ML IV ONE (08:45)
[2024-05-11] MEDS ORDERED: MIDAZOLAM HCL 2 MG/2 ML INJ ONE (09:50)
[2024-05-11] MEDS ORDERED: FENTANYL CITR 100 MCG/2 ML ONE (09:50)
[2024-05-11] MEDS ORDERED: ONDANSETRON 4 MG/2 ML VIAL ONE (09:50)
[2024-05-11] MEDS ORDERED: LIDOCAINE 1% MPF 5 ML VIAL ONE (09:50)
[2024-05-11] MEDS ORDERED: propofoL 200 MG/20 ML VIAL IV ONE (09:50)
[2024-05-11] MEDS ORDERED: ROCURONIUM 50 MG/5 ML VIAL IV ONE (10:04)
[2024-05-11] MEDS: Ciprofloxacin 200mg IV 400 MG/200 ML IV.SOLN. IV ONE (10:27)
[2024-05-11] MEDS ORDERED: GLYCOPYRROLATE 0.2 MG/ML SYR ONE (11:06)
[2024-05-11] MEDS ORDERED: NEOSTIGMINE 1 MG/ML -10 ML VIAL ONE (11:06)
[2024-05-11] MEDS ORDERED: SUGAMMADEX SODIUM 200 MG/2 ML VIAL IV ONE (11:12)
[2024-05-11] MEDS: MEPERIDINE HCL 25 MG/ML SYR ONE (11:58)
[2024-05-11] MEDS ORDERED: TRAMADOL HCL 50 MG TAB PO PRN (12:08)
--- NOTE | 2024-05-11 12:51 | RAD REPORT ---
EXAM: Fluoroscopy use, Urethrocystogrphy Retrograde HISTORY: [facility] STENT PLCMNT COMPARISON: None FINDINGS: A total of 11 images were sent to PACS, during a fluoroscopically guided retrograde urethro cystography. No radiologist was involved in protocoling or performance of the study, and no radiologist was present for the duration of the procedure. No interpretation of the saved images will be provided. Total fluoroscopy time: 0.6 minutes. IMPRESSION: Documentation of fluoroscopy use as above.
[2024-05-11] MEDS ORDERED: PHENAZOPYRIDINE 100MG TAB PO ONE (12:54)
[2024-05-11] MEDS: PHENAZOPYRIDINE 100MG TAB PO ONE (12:56)
[2024-05-11] MEDS: ONDANSETRON 4 MG/2 ML VIAL ONE (13:20)
[2024-05-11 14:09] VITALS: TEMP 97; O2SAT 96
[2024-05-11 14:12] VITALS: BP 155/82
--- NOTE | 2024-05-11 21:47 | OP ---
Date of Procedure: 05/11/2024 Surgeon: THEODORE HAMPTON Preoperative Diagnoses: 1.Left 8 mm proximal ureterolithiasis. 2.Grade 3 cystocele. Postoperative Diagnoses: 1.Left 8 mm proximal ureterolithiasis. 2.Grade 3 cystocele. 3.Meatal stenosis. Principal Procedures: 1.Cystoscopy. 2.Left retrograde pyelography. 3.Left ureteroscopy with laser lithotripsy. 4.Left ureteral stent exchange. Indication For Procedure: Ms. Sanchez presented via hospital evaluation with infection and sepsis associated with the presence of an obstructing proximal 8 mm ureterolithiasis on the left. She under went urgent left ureteral stent placement back in March and presents today for definitive management of her stone. No additional calculi were noted within either kidney bilaterally. Procedure In Detail: The patient was consented in the preoperative holding area before being transfe rred to the operative suite where general anesthesia was induced. She was given ciprofloxacin 400 mg IV antimicrobial prophylaxis, and pneumo boots were provided for DVT prophylaxis. She was placed in the lithotomy position, padded and secured to the table appropriately. Her genitalia were prepped w janell Phipps and she was draped in standard fashion. The case was begun attempting to pass the 22-F rench rigid cystoscope via her urethra into her bladder. Of course, there was the previously noted s ignificant grade 3 to 4 cystocele which caused an inferior decent in angulation of the urethra, but a dditionally, significant meatal stenosis prohibited ease passage of the cystoscope. However, with ir rigation of fluid and gentle slow pressure application, I was able to dilate past the stenotic area o f the meatus and ultimately entered the bladder. The bladder was decompressed of fluid and urine and the stent was emanating from the left ureteral orifice. So I grasped the tip of the coil of the nikki nt using an alligator grasper and delivered it to the meatus leaving the proximal coil within the pro ximal ureter as visual fluoroscopically. I then passed a Sensor wire via the ureteral stent coiling it in the putative collecting system. I r emoved the stent leaving the wire in place and then passed over the wire a dual-lumen catheter to per form a retrograde study. Left retrograde pyelography: Using a 70:30 mixture of Omnipaque and saline, contrast was injected vi a the second lumen of the dual-lumen catheter and did propagate up the distal into the mid and proxim al ureter where it reached a point of delayed ureteral transit before ultimately entering the renal p shonda and calices. No stone was fluoroscopically visible; so I passed a Bentson guidewire via the se cond lumen of the dual-lumen catheter and removed the dual-lumen catheter. I then passed the flexibl e ureteroscope over the Bentson guidewire into the proximal ureter where it reached a point of slight obstruction to passage of the ureteroscope. I removed the Bentson guidewire and utilized pressured irrigation of saline to dilate the ureter and surveyed it as I navigated the scope under direct visio n via the point of stenosis in the proximal ureter at the UPJ ultimately into the renal pelvis. I th en surveyed the calyces starting in the upper pole and identified no calculi there, however, in the m id pole anterior calyx, the stone was noted. So I utilized a 272 nm laser fiber at power setting of 0.8 joules and 15 hertz initially to begin to fragment the stone. When the stone began to fragment e asily suggestive of the fact that this was at least partially an infection stone, I increased the rat e to 25. At the core of the soft stone material, there was a harder set of stone material that was p resent and I individually targeted those fragments in order to reduce the size of the core of the sto ne down to something smaller than 1 mm in maximal diameter. In the end, all of the fragments were ei ther the size of the tip of the laser fiber or no more than 2 to 3 times the size of the laser fiber; so further attempts at trying to dust the stone were only subject to causing damage and injury. Als o, since the stone dust was too small to basket; I discontinued further efforts at laser lithotripsy. I then surveyed through the remainder of the visible calices to ensure no additional stones were pr esent. When none were found, I then injected contrast via the ureteroscope delineating the calices o f the kidney to ensure they had all been seen. Once confirmed, I then directly visualized the renal pelvis and down into the proximal into the mid and distal ureter on the way out for any additional ca lculi. When none were noted, ureteroscopy was concluded. I then back-loaded the cystoscope over the indwelling safety wire and passed it through again a steno tic meatus into her bladder. I then decompressed her bladder and passed a 6-Nauruan x 24 cm double-J ureteral stent into her upper pole calyx with a coil observed fluoroscopically there. An additional coil was formed cystoscopically in her bladder, and the stent was left on its tether. I then decompr essed her bladder before removing the cystoscope, and the tether of the stent was secured to her intr oitus using Mastisol and Steri-Strips. She was then taken out of the lithotomy position, awakened fr om general anesthesia, transferred to a stretcher, and then transferred to the recovery room in good condition. Complications: None. Discharge Disposition: As she has a tethered ureteral stent, we will have her continue the preoperat ashwini prophylactic antimicrobial that she was taking prior to surgery. The stent may be removed on Fri in the Urology Clinic, and she may stop taking the antimicrobial a day or 2 later. Subsequent fo llowup should be established based on whether she is a recurrent stone former, but also to followup o n her history of recurrent UTI. If she has had kidney stones in the past, she should complete a Lith olink metabolic analysis in about a month after the stent is removed, but if she has not previously h ad issues with kidney stones and this is her first time, we should plan to assess her urine for evide nce of infection in about 1 month after she has discontinued taking the prophylactic daily antimicrob ial. Subsequent followup may then be established with me relative to her cystocele and potential con siderations for repair given the potential for recurrent UTIs, but also in terms of her meatal stenos is observed. CRIS/ÁLVAROL Voice ID: [id number] Report ID: [id number]
== END 2024-05-11 14:00 | disposition home or self-care (01) ==
LOC: OR 08:26
PROVIDERS: ATTEND Urology
PROC: 0TF78ZZ Fragmentation in Left Ureter, Via Natural or Artificial Opening Endoscopic (ICD-10-PCS; principal; 2024-05-11 10:00)
DX: N20.2 Calculus of kidney with calculus of ureter (principal); N81.10 Cystocele, unspecified; N35.92 Unspecified urethral stricture, female; I10 Essential (primary) hypertension; R73.03 Prediabetes
CPT/HCPCS: 36415; 51610; 71046; 74450; 80048; 85025; 85610; 87086; 87088; 93005; J0744; J2001; J2175; J2250; J2405; J2704; J2710; J3010; J7120